=== PATIENT | male | born 1980 ===

== ENCOUNTER 2016-09-14 10:16 | Inpatient (IN) | payer MEDICARE ==
[2016-09-14 10:16] VITALS: BMI 31.4
[2016-09-14] MEDS ORDERED: Sodium Chloride 0.9% 1,000 ML IV STA (11:42)
--- NOTE | 2016-09-14 12:18 | ED PDOC ---
HPI: General Adult Time Seen by Provider: 09/14/16 10:32 Chief Complaint (Nursing): Headache History Per: Patient Additional Complaint(s): Pt. states on Sunday as he was getting into bed he struck the top of his onto a wooden headboard and he immediately felt pain and dizziness. Reports symptoms have been constant since. Pt. describes dizziness as the room spinning. Denies neck pain, LOC, N/V, hearing changes, previous TBI, hx of seizures, anticoagulant use. NIHSS Stroke Scale - Date/Time Evaluation Performed Date Performed: 09/14/16 Time Performed: 14:07 When Was NIHSS Performed: 24 hours post onset S/S - How Severe is the Stroke Level of Consciousness: 0=Alert LOC to Questions: 0=Both comments correct LOC to commands: 0=Obeys both correctly Best Gaze: 0=Normal Visual: 0=No visual loss Facial: 0=Normal Motor Arm - Left: 0=No drift Motor Arm - Right: 0=No drift Motor Leg - Left: 4=No movement (paraplegic) Motor Leg - Right: 4=No movement (paraplegic) Limb Ataxia: 1=Present Upper or Lower Sensory: 0=Normal Best Language: 0=No aphasia Dysarthia: 0=Normal articulation Extinction & Inattention (Neglect): 0=Normal, no object Score: 9 rTPA Inclusion/Exclusion - Refusal of Treatment Patient Refused Treatment: No - Inclusion Criteria for Altepase Patient is 18 years or Older: Yes The Clinical Diagnosis of Ischemic Stroke That is Causing a Potentially Disabling Neurological Deficit: No Time of Onset is Well Established to be Less Than 270 Minute Before Treatment Would Begin: No Risk/Benefit Discussed With Patient/Family Member Present: Yes - Exclusion Criteria for Altepase Uncontrolled Hypertension at Time of Treatment (Systolic BP above 185 or Diastolic BP above 110 mmHg): No Active Internal Bleeding: Yes Known Bleeding Diathesis Including but Not Limited to: Platelets Below 100,000/ mm,PTT Above 40 sec After Heparin Use, Current Use of Oral Anitcoagulant With INR Greater Than 1.7 or PT Greater Than 15 secs: No Evidence of an Intracranial Hemorrhage: No Evidence of Major Acute Infarct With Signs Greater Than 1/3 MCA Territory: No Suspicion of Subarachnoid Hemorrhage on Pretreatment Evaluation Even if CT Head Negative For Hemorrhage: No - Warning to TPA With Conditions Following Conditions Weighed Against Anticipated Benefit: No Past Medical History Reviewed: Historical Data, Nursing Documentation, Vital Signs Vital Signs: Last Vital Signs Temp 98.1 F 09/14/16 18:00 Pulse 68 09/14/16 18:52 Resp 18 09/14/16 18:52 BP 140/80 09/14/16 18:52 Pulse Ox 99 09/14/16 20:04 - Medical History PMH: Denies: Hypercholesterolemia (denies), Hyperlipidemia (denies), Osteoporosis (denies) Other PMH: pt. is paralyzed from "hip down" - Family History Family History: States: No Known Family Hx - Home Medications Home Medications: Ambulatory Orders Medication Instructions Recorded Alendronate [Fosamax] 70 mg PO QWK 09/14/16 Cyanocobalamin [Vitamin B12 1000 1,000 mcg PO DAILY 09/14/16 mcg Tab] Ergocalciferol (Vitamin D2) 50,000 unit PO QWK 09/14/16 [Vitamin D2] - Allergies Allergies/Adverse Reactions: Allergies Allergy/AdvReac Type Severity Reaction Status Date / Time No Known Allergies Allergy Verified 03/19/16 11:20 Review of Systems ROS Statement: Except As Marked, All Systems Reviewed And Found Negative Neurological: Positive for: Headache, Dizziness Physical Exam - Reviewed Nursing Documentation Reviewed: Yes Vital Signs Reviewed: Yes - Physical Exam Appears: Positive for: Well, Non-toxic, No Acute Distress Head Exam: Positive for: ATRAUMATIC, NORMAL INSPECTION, NORMOCEPHALIC Skin: Positive for: Normal Color, Warm. Negative for: Rash Eye Exam: Positive for: EOMI, Normal appearance, PERRL ENT: Positive for: Normal ENT Inspection Neck: Positive for: Normal, Painless ROM Cardiovascular/Chest: Positive for: Regular Rate, Rhythm Respiratory: Positive for: CNT, Normal Breath Sounds Gastrointestinal/Abdominal: Positive for: Normal Exam, Bowel Sounds, Soft. Negative for: Tenderness Back: Positive for: Normal Inspection Extremity: Positive for: Normal ROM (upper extremities only) Neurologic/Psych: Positive for: Alert, Oriented - Laboratory Results Result Diagrams: 09/14/16 12:00 09/14/16 13:25 - ECG ECG: Positive for: Interpreted By Me ECG Rhythm: Positive for: Sinus Rhythm. Negative for: ST/T Changes O2 Sat by Pulse Oximetry: 99 - Progress ED Course And Treament: Labs ordered. CT head w/o contrast ordered. EKG ordered. CT head w/o contrast: Acute intraparenchymal hemorrhage at the left basal ganglia extending to the left lateral ventricle measures 3.6 centimeter in the largest diameter. Small amount of acute blood also seen in the 3rd and 4th ventricles. Mass effect and [id number]-ro-[id number] midline shift measures 5.2 millimeter. Mild effacement of the left brain sulci and left basilar cistern also noted. Close follow-up reassessment is recommended. Case d/w Dr. Goodman. Case d/w Dr. Brown and requests CT head w/o contrast to be done tomorrow AM. No further action necessary. Case d/w Dr. Lewis who requests CTA of head and neck to be done. No further action necessary. Case d/w Dr. Lazaro and arrangements made for admission. Case d/w Dr. Bermeo, ICU attending. Disposition - Clinical Impression Clinical Impression: Intraparenchymal hemorrhage of brain - Patient ED Disposition Is Patient to be Admitted: Yes - Disposition Disposition Time: 14:06 Condition: FAIR
[2016-09-14 12:47] LABS: BASO % 0.2 % (0.0-2.0); EOS % 0.2 % (0.0-4.0); HEMATOCRIT 41.4 % (35.0-51.0); LYMPH # 1.6 K/uL (1.0-4.3); LYMPH % 10.9 % (20.0-40.0); MEAN CELL VOLUME 84.3 fl (80.0-94.0); MEAN CORPUSCULAR HGB CONC 33.2 g/dL (33.0-37.0); MEAN PLATELET VOLUME 9.3 fl (7.2-11.7); MONO # 1.6 K/uL (0.0-0.8); MONO % 11.2 % (0.0-10.0); NEUT # 11.2 K/uL (1.8-7.0); NEUT % 77.5 % (50.0-75.0); RED CELL DISTRIBUTION WIDTH 17.2 % (11.5-14.5); WHITE BLOOD COUNT 14.5 K/uL (4.8-10.8)
[2016-09-14 13:08] LABS: PARTIAL THROMBOPLASTIN TIME 26.8 SECONDS (23.3-32.5)
--- NOTE | 2016-09-14 13:14 | CT ---
PROCEDURE: CT HEAD WITHOUT CONTRAST. HISTORY: trauma, dizziness COMPARISON: None available. TECHNIQUE: Axial computed tomography images were obtained through the head/brain without intravenous contrast. Radiation dose: Total exam DLP = mGy-cm. This CT exam was performed using one or more of the following dose reduction techniques: Automated exposure control, adjustment of the mA and/or kV according to patient size, and/or use of iterative reconstruction technique. FINDINGS: HEMORRHAGE: There is acute intraparenchymal hemorrhage at the left basal ganglia mainly in the caudate head and ligament extending to the left lateral ventricle. Findings could be due to rupture aneurysm or due to hypertension. BRAIN: There is mass effect on the lateral ventricles and lzso-fp-[id number] midline shift approximately 5.2 millimeter. There is mild effacement of the left brain sulci suggestive of mild increased intracranial pressure. There is also mild effacement of the left basilar cistern. VENTRICLES: Intraventricular hemorrhage seen at the left lateral ventricle and in the 3rd and 4th ventricles. CALVARIUM: Unremarkable. PARANASAL SINUSES: Unremarkable as visualized. No significant inflammatory changes. MASTOID AIR CELLS: Unremarkable as visualized. No inflammatory changes. OTHER FINDINGS: None. IMPRESSION: Acute intraparenchymal hemorrhage at the left basal ganglia extending to the left lateral ventricle measures 3.6 centimeter in the largest diameter. Small amount of acute blood also seen in the 3rd and 4th ventricles. Mass effect and dcqo-ab-jbuqo midline shift measures 5.2 millimeter. Mild effacement of the left brain sulci and left basilar cistern also noted. Close follow-up reassessment is recommended. If clinically warranted further assessment by CTA or MRA of the brain may be obtained to evaluate for possible aneurysm. These findings were reported to and discussed with the ER physician Dr. Moreira at 1:01 p.m on 09/14/2016.
[2016-09-14 13:59] LABS: BLOOD UREA NITROGEN 9 mg/dl (9-20); CALCIUM 9.1 mg/dL (8.4-10.2); CARBON DIOXIDE 24 mmol/L (22-30); CHLORIDE 100 mmol/L (98-107); GFR AFRICAN-AMERICAN > 60; GLUCOSE,RANDOM 107 mg/dL (75-110); POTASSIUM 3.9 MMOL/L (3.6-5.0); SODIUM 135 mmol/l (132-148); TOTAL PROTEIN 7.7 G/DL (6.3-8.2)
[2016-09-14 14:00] LABS: ALB/GLOB RATIO 1.2 (1.0-2.1); ALKALINE PHOSPHATASE 100 U/L (38-126); ALT/SGPT 60 U/L (21-72); AST/SGOT 34 U/L (17-59); BILIRUBIN,TOTAL 0.8 mg/dl (0.2-1.3)
--- NOTE | 2016-09-14 14:14 | CON ---
DATE: 09/14/2016 This is a 36-year-old paraplegic gentleman apparently with no true medical history who states that, a pproximately 3 days ago, getting into bed, he hit head on the occipital area on the headboard. Since then, he was suffering with severe headaches. He delayed presenting to the [facility] ER unti l 3 days later. He was found to be neurologically intact, but a CT of the brain does show an intracr anial hemorrhage. Reviewing the CT today, this is a very typical hypertensive basal ganglia hemorrhage with rupture int o the ventricular system, primarily the left frontal horn. There is minimal mass effect and there is no hydrocephalus. The patient presented with a normal blood pressure in the 120/80 area. He has no history of hyperten jessie. He is not taking any anticoagulation. This is a very odd scenario. This is most certainly no t in any case a typical traumatic hemorrhage. There is certainly nothing to do at this point from a surgical perspective. I would certainly advoca te checking the patient's platelets, PT, PTT. I would have a neurology consultation. I would sugges t repeating the CT tomorrow morning just to ensure there is no change and ultimately, I think the pat ient should probably have an MRI in 6-8 weeks when the blood resolves just to ensure there is no unde rlying lesion in this area. Rasheed Brown MD cc: 131 TT: 09/14/2016 14:14:23 Confirmation # [id number] Dictation # [id number] tn
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
[2016-09-14] MEDS ORDERED: Sodium Chloride 0.9% 50 ML IV ONE (15:30)
[2016-09-14] MEDS ORDERED: Iodixanol 320 MG/ML 100 ML BOTTLE IV ONE (15:30)
--- NOTE | 2016-09-14 16:21 | PCM.RRTMUL ---
MEDICAL OFFICE SPECIALIST Nurse Assessment - Vital Signs Blood Pressure:: 140/80 Pulse Rate:: 68 Respiratory Rate:: 18 Summary - Summary of Event Summary of Event: MEDICAL OFFICE SPECIALIST Time: 15:43 MEDICAL OFFICE SPECIALIST Arrival: 15:44 MEDICAL OFFICE SPECIALIST Reason: Chest pain MEDICAL OFFICE SPECIALIST Location: CT Scan S: MEDICAL OFFICE SPECIALIST called by process design chemical engineer because pt. complaining of chest pain just prior to having CT angio for evaluation Intraparenchymal bleed and its etiology. Pt. reports feeling chest pain as soon as the head of the stretcher was made supine and getting ready for transfer to the CT scan table. Pt. reports pain is substernal, sharp, not radiating, and rated 9/10. O: General: Pt. appears in acute distress Respiratory: CTAB Cardiac: S1, S2 Abdomen: Soft, Non-tender MEDICAL OFFICE SPECIALIST Intervention A/P 36 y.o. male with Intracerebral hemorrhage with acute onset chest pain 1- Stat EKG 2- Stat Troponin 3- ASA contraindicated due to intra-cerebral haemorrhage MEDICAL OFFICE SPECIALIST Outcome 1- Chest pain resolved spontaneously by the time EKG completed 2- EKG- NSR and no acute changes noted 3- CT angio completed without any subsequent sequelae 4- Pt. transferred to to ICU 5- Troponin Negative, will follow serial Troponins MEDICAL OFFICE SPECIALIST leader: Dr. Lacey MEDICAL OFFICE SPECIALIST Residnts: Jesika Atkins PGY-3, Rosa Chandler PGY-3, Donal Peterson PGY-2
--- NOTE | 2016-09-14 16:40 | CT ---
PROCEDURE: CTA of the neck and head HISTORY: trauma COMPARISON: Comparison is made to the previous CT of the head done on the same day. TECHNIQUE: Axial and reformatted coronal and sagittal CTA images of the neck and head were obtained after IV contrast administration. FINDINGS: There is no evidence of focal stenosis or occlusion in the visualized carotid arteries at the neck. No evidence of stenosis or occlusion in the intracranial arteries around the [place]. No definite CTA evidence of intracranial aneurysm. Left middle and anterior cerebral arteries are normal in caliber and shape. Again seen intraparenchymal hemorrhage at the left basal ganglia extending to left lateral ventricle. IMPRESSION: No evidence of intracranial aneurysm. No evidence of stenosis or occlusion in the carotid arteries at the neck or in the intracranial arteries. If clinically warranted follow-up MRA or CTA study after 2 weeks is suggested.
--- NOTE | 2016-09-14 16:57 | CT ---
PROCEDURE: CT Cervical Spine without contrast HISTORY: Trauma COMPARISON: None available. TECHNIQUE: Axial computed tomography images were obtained of the cervical spine without the use of intravenous contrast. Coronal and sagittal reformatted images were created and reviewed. Radiation dose: Total exam DLP = 603 mGy-cm. This CT exam was performed using one or more of the following dose reduction techniques: Automated exposure control, adjustment of the mA and/or kV according to patient size, and/or use of iterative reconstruction technique. FINDINGS: VERTEBRAE: No fracture. Normal alignment. No destructive bony lesion. DISCS/SPINAL CANAL/NEURAL FORAMINA: No significant central canal or neural foraminal stenosis. There has been fusion of the C5-6 and C6-7 disc spaces. There is an anterior plate and screws. There are no complicating factors. PARASPINAL SOFT TISSUES: Unremarkable. OTHER FINDINGS: None. IMPRESSION: No acute findings
[2016-09-14] MEDS ORDERED: Magnesium Sulfate 2 gm/50 ml 2 GM/50 ML BAG IVPB ONE (17:27)
[2016-09-14] MEDS ORDERED: Valproate 500 MG in Sodium Chloride 0.9% 100 ML IVPB ONE (17:28)
[2016-09-14] MEDS ORDERED: Multivitamin (MVI) 10 ML, Thiamine 100 MG, Folic Acid 1 MG in Sodium Chloride 0.9% 1,00... IV ONE (17:58)
[2016-09-14] MEDS ORDERED: Pneumococcal 23-Valent Vaccine IM ONE (18:03)
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
[2016-09-14 19:18] LABS: RBC URINE 3 /hpf (0-3); URINE BACTERIA FEW (<OCC); URINE BILIRUBIN NEGATIVE (NEGATIVE); URINE BLOOD MODERATE (NEGATIVE); URINE COLOR YELLOW (YELLOW); URINE GLUCOSE (UA) NEG (Normal); URINE KETONE NEGATIVE (NEGATIVE); URINE LEUKOCYTE ESTERASE SMALL Leu/uL (Negative); URINE PROTEIN NEGATIVE (NEGATIVE); WBC URINE 5 /hpf (0-5)
[2016-09-15 05:27] LABS: HEMATOCRIT 40.1 % (35.0-51.0); MEAN CELL VOLUME 83.9 fl (80.0-94.0); MEAN CORPUSCULAR HEMOGLOBIN 27.5 pg (27.0-31.0); MEAN CORPUSCULAR HGB CONC 32.8 g/dL (33.0-37.0); RED CELL DISTRIBUTION WIDTH 17.2 % (11.5-14.5); WHITE BLOOD COUNT 11.4 K/uL (4.8-10.8)
[2016-09-15 05:47] LABS: BLOOD UREA NITROGEN 7 mg/dl (9-20); CALCIUM 8.5 mg/dL (8.4-10.2); CARBON DIOXIDE 23 mmol/L (22-30); CHLORIDE 102 mmol/L (98-107); GFR AFRICAN-AMERICAN > 60; GLUCOSE,RANDOM 104 mg/dL (75-110); POTASSIUM 3.5 MMOL/L (3.6-5.0); SODIUM 135 mmol/l (132-148)
--- NOTE | 2016-09-15 08:32 | CARD ---
APPROVED REPORT EKG Measurement Heart [id number] [place] [id number] <Conclusion> Normal sinus rhythm Possible Left atrial enlargement Borderline ECG
--- NOTE | 2016-09-15 08:36 | CARD ---
APPROVED REPORT EKG Measurement Heart [id number] MD [id number] <Conclusion> Normal sinus rhythm Normal ECG
[2016-09-15] MEDS ORDERED: levoFLOXacin 750 mg in D5W 150 ML BAG IVPB SCH (09:00)
--- NOTE | 2016-09-15 10:15 | CARD ---
APPROVED REPORT EXAM: Two-dimensional and M-mode echocardiogram with Doppler and color Doppler. Other Information Quality : AverageRhythm : NSR INDICATION ICD: Intercranial Bleed 2D DIMENSIONS IVSd1.17 (0.7-1.1cm)LVDd4.89 (3.9-5.9cm) LVOT Diameter2.21 (1.8-2.4cm)PWd1.06 (0.7-1.1cm) IVSs1.44 (0.8-1.2cm)LVDs2.82 (2.5-4.0cm) FS (%) 42.4 %PWs1.47 (0.8-1.2cm) M-Mode DIMENSIONS Left Atrium (MM)2.97 (2.5-4.0cm)IVSd1.09 (0.7-1.1cm) Aortic Root3.21 (2.2-3.7cm)LVDd5.76 (4.0-5.6cm) Aortic Cusp Exc.2.24 (1.5-2.0cm)PWd0.97 (0.7-1.1cm) IVSs1.47 cmFS (%) 35 % LVDs3.74 (2.0-3.8cm)PWs1.53 cm Mitral Valve E/A ratio0.0 TDI E/Lateral E'0.0E/Medial E'0.0 LEFT VENTRICLE The left ventricle is normal size. There is normal left ventricular wall thickness. Left ventricle systolic function is normal. The Ejection Fraction is 55-60%. There is normal LV segmental wall motion. The left ventricular diastolic function is normal. RIGHT VENTRICLE The right ventricle is normal size. There is normal right ventricular wall thickness. The right ventricular systolic function is normal. ATRIA The left atrium size is normal. The right atrium size is normal. AORTIC VALVE The aortic valve is normal in structure and function. No aortic regurgitation is present. There is no aortic valvular stenosis. MITRAL VALVE The mitral valve is normal in structure and function. There is no evidence of mitral valve prolapse. There is no mitral valve stenosis. There is no mitral valve regurgitation noted. TRICUSPID VALVE The tricuspid valve is normal in structure and function. There is no tricuspid valve regurgitation noted. PULMONIC VALVE The pulmonary valve is normal in structure and function. There is no pulmonic valvular regurgitation. GREAT VESSELS The aortic root is normal in size. Due to poor image quality, the IVC could not be assessed. PERICARDIAL EFFUSION The pericardium appears normal. <Conclusion> The left ventricle is normal size. There is normal left ventricular wall thickness. There is normal LV segmental wall motion. Left ventricle systolic function is normal. The Ejection Fraction is 55-60%. The left ventricular diastolic function is normal.
--- NOTE | 2016-09-15 10:31 | CP.CCUPN ---
Addendum entered and electronically signed by Donal Peterson DO 09/15/16 14:14 : Sacral Ulcers x 2 with Leucocytosis-Improving 11.4 today Secondary to pressure due to immobilization 1-Turn patient q2hrs 2-Wound care consult 3-Pending Wound culture 4-I.V. antibiotics Rocephin 1gram q24 Original Note: CCU Subjective - Physician Review Subjective (Free Text): 09/14/16 15:04 Pt. examined at bedside this morning with Dr. Bermeo during morning rounds. Pt. today with chief complaint of headache. Headache has not resolved, rated 8/10, localized to back of head, onset since admission. Pt. unable to characterize the headache but when prompted reports it as being dull. On ROS, Pt. denies any nausea, vomiting, shortness of breath, chest pain, fever, chils, dysuria, flank pain, or limb pain. CCU Objective - Vital Signs / Intake & Output Intake and Output (Last 8hrs): Intake & Output 09/14/16 09/15/16 09/15/16 22:59 06:59 14:59 Intake Total 650 900 Output Total 1100 Balance 650 -200 Intake: IV 400 900 Intake, Piggyback 250 Output: Urine 1100 Urethral (De La Torre) 1100 - Physical Exam Extroacular Muscles: Positive for: EOMI Neck: Positive for: Normal Range of Motion, Other (Supple) Respiratory/Chest: Positive for: Clear to Auscultation. Negative for: Respiratory Distress Cardiovascular: Positive for: Regular Rate and Rhythm. Negative for: Murmurs Abdomen: Negative for: Tenderness, Distention, Peritoneal Signs Genitourinary Male: Positive for: Other Upper Extremity: Positive for: Normal Inspection, NORMAL PULSES. Negative for: Edema Lower Extremity: Positive for: Normal Inspection. Negative for: Edema, Neurovascularly Intact (bilateral strength 0/5) Neurological: Positive for: CN II-XII Intact, Speech Normal, Gait Normal ( Paraplegic from waist down) Skin: Positive for: Other (Sacral Ulcer x 2 localized to RT. lateral uppr thigh and sacral area) Psychiatric: Positive for: Alert, Oriented x 3 - Medications Active Medications: Active Medications Generic Name Dose Route Start Last Admin Trade Name Freq PRN Reason Stop Dose Admin Acetaminophen 650 mg 09/15/16 10:14 Tylenol 325mg Tab PO Q6 PRN Headache Dextrose/Sodium Chloride 1,000 mls @ 75 mls/hr 09/14/16 16:45 09/14/16 17:26 Dextrose 5%-0.45% Ns 500 Ml IV 09/15/16 16:39 75 mls/hr .[id number] YESSI Administration Ceftriaxone Sodium 1 gm/ 100 mls @ 100 mls/hr 09/14/16 17:45 09/15/16 08:47 Sodium Chloride IVPB 100 mls/hr DAILY YESSI Administration Levofloxacin/Dextrose 750 mg in 150 mls @ 150 mls/hr 09/15/16 09:00 Levaquin 750mg IVPB DAILY YESSI - Patient Studies Lab Studies: Lab Studies 09/15/16 09/15/16 09/15/16 Range/Units 04:25 04:25 04:25 WBC 11.4 H (4.8-10.8) K/uL RBC 4.77 (4.40-5.90) Mil/uL Hgb 13.1 (12.0-18.0) g/dL Hct 40.1 (35.0-51.0) % MCV 83.9 (80.0-94.0) fl MCH 27.5 (27.0-31.0) pg MCHC 32.8 L (33.0-37.0) g/dL RDW 17.2 H (11.5-14.5) % Plt Count 199 (130-400) K/uL Sodium 135 (132-148) mmol/l Potassium 3.5 L (3.6-5.0) MMOL/L Chloride 102 (98-107) mmol/L Carbon Dioxide 23 (22-30) mmol/L Anion Gap 14 (10-20) BUN 7 L (9-20) mg/dl Creatinine 0.5 L (0.8-1.5) mg/dL Est GFR ( Amer) > 60 Est GFR (Non-Af Amer) > 60 POC Glucose (mg/dL) (65-110) mg/dL Random Glucose 104 (75-110) mg/dL Calcium 8.5 (8.4-10.2) mg/dL Troponin I (0.00-0.120) ng/mL Vitamin B12 295 (239-931) pg/mL Urine Color (YELLOW) Urine Clarity (Clear) Urine pH (5.0-8.0) Ur Specific Bison (1.003-1.030) Urine Protein (NEGATIVE) mg/dL Urine Glucose (UA) (Normal) mg/dL Urine Ketones (NEGATIVE) mg/dL Urine Blood (NEGATIVE) Urine Nitrate (NEGATIVE) Urine Bilirubin (NEGATIVE) Urine Urobilinogen (0.2-1.0) mg/dL Ur Leukocyte Esterase (Negative) Cheryl/uL Urine RBC (Auto) (0-3) /hpf Urine Microscopic WBC (0-5) /hpf Ur Squamous Epith Cells (0-5) /hpf Urine Bacteria (<OCC) Urine Opiates Screen (NEGATIVE) Urine Methadone Screen (NEGATIVE) Ur Barbiturates Screen (NEGATIVE) Ur Phencyclidine Scrn (NEGATIVE) Ur Amphetamines Screen (NEGATIVE) U Benzodiazepines Scrn (NEGATIVE) U Oth Cocaine Metabols (NEGATIVE) U Cannabinoids Screen (NEGATIVE) HIV-1 Ab Rapid Screen Non reactive (NON REAC) 09/14/16 09/14/16 09/14/16 Range/Units 18:30 18:15 15:55 WBC (4.8-10.8) K/uL RBC (4.40-5.90) Mil/uL Hgb (12.0-18.0) g/dL Hct (35.0-51.0) % MCV (80.0-94.0) fl MCH (27.0-31.0) pg MCHC (33.0-37.0) g/dL RDW (11.5-14.5) % Plt Count (130-400) K/uL Sodium (132-148) mmol/l Potassium (3.6-5.0) MMOL/L Chloride (98-107) mmol/L Carbon Dioxide (22-30) mmol/L Anion Gap (10-20) BUN (9-20) mg/dl Creatinine (0.8-1.5) mg/dL Est GFR ( Amer) Est GFR (Non-Af Amer) POC Glucose (mg/dL) (65-110) mg/dL Random Glucose (75-110) mg/dL Calcium (8.4-10.2) mg/dL Troponin I < 0.0120 (0.00-0.120) ng/mL Vitamin B12 263 (239-931) pg/mL Urine Color Yellow (YELLOW) Urine Clarity Cloudy (Clear) Urine pH 7.0 (5.0-8.0) Ur Specific Bison 1.028 (1.003-1.030) Urine Protein Negative (NEGATIVE) mg/dL Urine Glucose (UA) Neg (Normal) mg/dL Urine Ketones Negative (NEGATIVE) mg/dL Urine Blood Moderate (NEGATIVE) Urine Nitrate Negative (NEGATIVE) Urine Bilirubin Negative (NEGATIVE) Urine Urobilinogen 4.0 (0.2-1.0) mg/dL Ur Leukocyte Esterase Small (Negative) Cheryl/uL Urine RBC (Auto) 3 (0-3) /hpf Urine Microscopic WBC 5 (0-5) /hpf Ur Squamous Epith Cells 1 (0-5) /hpf Urine Bacteria Few H (<OCC) Urine Opiates Screen (NEGATIVE) Urine Methadone Screen (NEGATIVE) Ur Barbiturates Screen (NEGATIVE) Ur Phencyclidine Scrn (NEGATIVE) Ur Amphetamines Screen (NEGATIVE) U Benzodiazepines Scrn (NEGATIVE) U Oth Cocaine Metabols (NEGATIVE) U Cannabinoids Screen (NEGATIVE) HIV-1 Ab Rapid Screen (NON REAC) 09/14/16 09/14/16 Range/Units 15:52 15:27 WBC (4.8-10.8) K/uL RBC (4.40-5.90) Mil/uL Hgb (12.0-18.0) g/dL Hct (35.0-51.0) % MCV (80.0-94.0) fl MCH (27.0-31.0) pg MCHC (33.0-37.0) g/dL RDW (11.5-14.5) % Plt Count (130-400) K/uL Sodium (132-148) mmol/l Potassium (3.6-5.0) MMOL/L Chloride (98-107) mmol/L Carbon Dioxide (22-30) mmol/L Anion Gap (10-20) BUN (9-20) mg/dl Creatinine (0.8-1.5) mg/dL Est GFR ( Amer) Est GFR (Non-Af Amer) POC Glucose (mg/dL) 111 H (65-110) mg/dL Random Glucose (75-110) mg/dL Calcium (8.4-10.2) mg/dL Troponin I (0.00-0.120) ng/mL Vitamin B12 (239-931) pg/mL Urine Color (YELLOW) Urine Clarity (Clear) Urine pH (5.0-8.0) Ur Specific Bison (1.003-1.030) Urine Protein (NEGATIVE) mg/dL Urine Glucose (UA) (Normal) mg/dL Urine Ketones (NEGATIVE) mg/dL Urine Blood (NEGATIVE) Urine Nitrate (NEGATIVE) Urine Bilirubin (NEGATIVE) Urine Urobilinogen (0.2-1.0) mg/dL Ur Leukocyte Esterase (Negative) Cheryl/uL Urine RBC (Auto) (0-3) /hpf Urine Microscopic WBC (0-5) /hpf Ur Squamous Epith Cells (0-5) /hpf Urine Bacteria (<OCC) Urine Opiates Screen Negative (NEGATIVE) Urine Methadone Screen Negative (NEGATIVE) Ur Barbiturates Screen Negative (NEGATIVE) Ur Phencyclidine Scrn Negative (NEGATIVE) Ur Amphetamines Screen Negative (NEGATIVE) U Benzodiazepines Scrn Negative (NEGATIVE) U Oth Cocaine Metabols Negative (NEGATIVE) U Cannabinoids Screen Negative (NEGATIVE) HIV-1 Ab Rapid Screen (NON REAC) Laboratory Results - last 24 hr 09/14/16 09/14/16 09/14/16 15:27 15:52 15:55 WBC RBC Hgb Hct MCV MCH MCHC RDW Plt Count Sodium Potassium Chloride Carbon Dioxide Anion Gap BUN Creatinine Est GFR ( Amer) Est GFR (Non-Af Amer) POC Glucose (mg/dL) 111 H Random Glucose Calcium Troponin I < 0.0120 Vitamin B12 Urine Color Urine Clarity Urine pH Ur Specific Bison Urine Protein Urine Glucose (UA) Urine Ketones Urine Blood Urine Nitrate Urine Bilirubin Urine Urobilinogen Ur Leukocyte Esterase Urine RBC (Auto) Urine Microscopic WBC Ur Squamous Epith Cells Urine Bacteria Urine Opiates Screen Negative Urine Methadone Screen Negative Ur Barbiturates Screen Negative Ur Phencyclidine Scrn Negative Ur Amphetamines Screen Negative U Benzodiazepines Scrn Negative U Oth Cocaine Metabols Negative U Cannabinoids Screen Negative HIV-1 Ab Rapid Screen 09/14/16 09/14/16 09/15/16 18:15 18:30 04:25 WBC RBC Hgb Hct MCV MCH MCHC RDW Plt Count Sodium Potassium Chloride Carbon Dioxide Anion Gap BUN Creatinine Est GFR ( Amer) Est GFR (Non-Af Amer) POC Glucose (mg/dL) Random Glucose Calcium Troponin I Vitamin B12 263 Urine Color Yellow Urine Clarity Cloudy Urine pH 7.0 Ur Specific Bison 1.028 Urine Protein Negative Urine Glucose (UA) Neg Urine Ketones Negative Urine Blood Moderate Urine Nitrate Negative Urine Bilirubin Negative Urine Urobilinogen 4.0 Ur Leukocyte Esterase Small Urine RBC (Auto) 3 Urine Microscopic WBC 5 Ur Squamous Epith Cells 1 Urine Bacteria Few H Urine Opiates Screen Urine Methadone Screen Ur Barbiturates Screen Ur Phencyclidine Scrn Ur Amphetamines Screen U Benzodiazepines Scrn U Oth Cocaine Metabols U Cannabinoids Screen HIV-1 Ab Rapid Screen Non reactive 09/15/16 09/15/16 04:25 04:25 WBC 11.4 H RBC 4.77 Hgb 13.1 Hct 40.1 MCV 83.9 MCH 27.5 MCHC 32.8 L RDW 17.2 H Plt Count 199 Sodium 135 Potassium 3.5 L Chloride 102 Carbon Dioxide 23 Anion Gap 14 BUN 7 L Creatinine 0.5 L Est GFR ( Amer) > 60 Est GFR (Non-Af Amer) > 60 POC Glucose (mg/dL) Random Glucose 104 Calcium 8.5 Troponin I Vitamin B12 295 Urine Color Urine Clarity Urine pH Ur Specific Bison Urine Protein Urine Glucose (UA) Urine Ketones Urine Blood Urine Nitrate Urine Bilirubin Urine Urobilinogen Ur Leukocyte Esterase Urine RBC (Auto) Urine Microscopic WBC Ur Squamous Epith Cells Urine Bacteria Urine Opiates Screen Urine Methadone Screen Ur Barbiturates Screen Ur Phencyclidine Scrn Ur Amphetamines Screen U Benzodiazepines Scrn U Oth Cocaine Metabols U Cannabinoids Screen HIV-1 Ab Rapid Screen Review of Systems - Review of Systems Review of Systems: See HPI Critical Care Progress Note - Nutrition Nutrition: Nutrition Category Date Time Status Regular Diet [DIET] Diets 09/14/16 Dinner Active Assessment/Plan - Assessment and Plan (Free Text) Assessment: 36 y.o. male admitted for Intracerebral Hemorrhage which ocurred at home of unclear etiology trauma vs. AV-malformation vs. aneuyrsm Intracerebral Hemorrhage- Intraparenchymal hemorrhage at the left basal ganglia Neurosurgery Dr. Brown consulted in the ED by DONNA Lezama- Input appreciated Neurology Dr. Lewis consulted in the ED by DONNA Lezama- Input appreciated 1- Elevate head of bed at 30degrees 2- Neurochecks q2hrs 3- Pending- CT angio & CT neck w/o contrast a. No evidence of intracrania aneurysm b. no evidence of stensosi or occlusion in the carotid arteries at the neck or in the intracrania arteries c. If clinically warranted follow up MRA or CTA study after 2 weeks is suggested. 4- Pending Repeat CT head w/o contrast in the today 5- Pending Echocardiogram and Venous Doppler rule to rule out sources of thromboembolic disease Headache- No improvement 1- Secondary to Intracerebral Hemorrhage 2- Keep head of bed elevated 3- Avoid opiates, Tylenol PRN 4- Will consider I.V. steroids pending repeat CT scan looking for resolution of midline shift Hx of Chronic Alcoholism 1-Banana bag x 1 on 09/14/16 2-B-12 and Folate levels are WNL 3-Clinically monitor for signs of withdrawl Sacral Ulcers x 2 with Leucocytosis-Improving 11.4 today 1-Turn patient q2hrs 2-Wound care consult 3-Pending Wound culture 4-I.V. antibiotics Rocephin 1gram q24 Catheter associated UTI- Small bacteria, Trace leucocyte esterase Pt. De La Torre catheter present on admission from home 1- Change De La Torre 2- Start Ciprfloxacin 750mg daily 3- UCX pending Leucocytosis- 11.4 today improving Afebrile on admission blood pressure and HR WNL 1- Repeat CBC is WNL 2- Pending WCx with gram stain 3- Continue Rocephin 1gram q24 Paraplegia Chronic 1-PT/OT evaluate and treat Incontinence Chronic 1-De La Torre catheter from home changed 2-Consider changing De La Torre catheter DVT prophylaxis 1-SCD only GI prophylaxis 1-Not indicated Diet 1-Regular 2-Decreased PO intake 3-I.V. fluids D51/2 NS at 75
[2016-09-15] MEDS: levoFLOXacin 750 mg in D5W 750 MG/150 ML BAG IVPB SCH (11:59)
[2016-09-15 12:22] LABS: FOLATE 4.5 ng/mL
--- NOTE | 2016-09-15 14:04 | PQF GENQUE ---
This form is a permanent part of the medical record 09/15/16 Dr. Lazaro, Please clarify if there is an associated diagnosis to go along with the documentation by the clerical warehouse worker below. Documentation by the mechanical planner that the patient presented to the hospital with a Right Hip Stage 3 Pressure Ulcer. Recommending to start Medihoney then cover with thick foam dressing daily. Clarification of your documentation is requested to better reflect the severity of illness and intensity of treatment of your patient. PHYSICIAN'S RESPONSE Based on your medical judgment of the clinical indicators outlined above please clarify the following: [] Practitioner response [] If unable to determine, please check the box, sign and date. Present On Admission (POA) Indicator: [] Present at the time of admission [] Not present at the time of admission [] Clinically Undetermined In responding to this query, please exercise your independent professional judgment. The fact that a question is asked does not imply that any particular answer is desired or expected. Thank you for your clarification on this documentation. If you have any questions please call: [phone] * Thank you, Leidy Adams RN CDMP MTDD
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
--- NOTE | 2016-09-15 16:03 | CP.PCM.PN ---
Subjective - Date & Time of Evaluation Date of Evaluation: 09/15/16 Time of Evaluation: 16:00 - Subjective Subjective: Mr. Sousa was seen and examined today at bedside. He was found in NAD. There were no acute events overnight. Neurologically, he is unchanged. CT scan of the head was not done yet due to logistical issues. Objective - Vital Signs/Intake and Output Vital Signs (last 24 hours): Temp Pulse Resp BP Pulse Ox 99.9 F H 76 22 134/72 94 L 09/15/16 12:00 09/15/16 14:00 09/15/16 14:00 09/15/16 14:00 09/15/16 14:00 Intake and Output: 09/15/16 09/15/16 06:59 18:59 Intake Total 1550 1130 Output Total 1100 1200 Balance 450 -70 - Medications Medications: Current Medications Acetaminophen (Tylenol 325mg Tab) 650 mg PO Q6 PRN PRN Reason: Headache Last Admin: 09/15/16 12:02 Dose: 650 mg Dextrose/Sodium Chloride (Dextrose 5%-0.45% Ns 500 Ml) 1,000 mls @ 75 mls/hr IV .[id number] Stop: 09/15/16 16:39 Last Admin: 09/14/16 17:26 Dose: 75 mls/hr Ceftriaxone Sodium 1 gm/ (Sodium Chloride) 100 mls @ 100 mls/hr IVPB DAILY [facility] Last Admin: 09/15/16 08:47 Dose: 100 mls/hr Levofloxacin/Dextrose (Levaquin 750mg) 750 mg in 150 mls @ 150 mls/hr IVPB DAILY [facility] Last Admin: 09/15/16 11:59 Dose: 150 mls/hr - Labs Labs: 09/15/16 04:25 09/15/16 04:25 PT 10.2 SECONDS (9.6-11.2) 09/14/16 12:00 INR 0.98 (0.92-1.08) 09/14/16 12:00 APTT 26.8 SECONDS (23.3-32.5) 09/14/16 12:00 - Head Exam Head Exam: ATRAUMATIC, NORMAL INSPECTION, NORMOCEPHALIC - Eye Exam Eye Exam: EOMI, Normal appearance, PERRL - ENT Exam ENT Exam: Mucous Membranes Moist, Normal Exam - Neck Exam Neck Exam: Full ROM, Normal Inspection. absent: Lymphadenopathy - Respiratory Exam Respiratory Exam: Clear to Ausculation Bilateral, NORMAL BREATHING PATTERN - Cardiovascular Exam Cardiovascular Exam: REGULAR RHYTHM, +S1, +S2. absent: Murmur - GI/Abdominal Exam GI & Abdominal Exam: Soft, Normal Bowel Sounds. absent: Tenderness - Neurological Exam Neurological Exam: Alert, Awake, CN II-XII Intact, Oriented x3 Neuro motor strength exam: Left Upper Extremity: 4, Right Upper Extremity: 4, Left Lower Extremity: 2/1, Right Lower Extremity: 2/1 Additional comments: Neurologically unchanged compared with yesterday's examination. Assessment and Plan (1) Intracranial hemorrhage Assessment & Plan: Continue supportive care. CT scan of the head is pending. Clinically, the patient is stable. Neurology will continue following. May consider transferring to general medical floor tomorrow if the CT head in the AM is still unchanged. Status: Acute
--- NOTE | 2016-09-15 16:22 | US ---
PROCEDURE: Bilateral lower extremity venous duplex Doppler. HISTORY: Intracerebral hemorrhage COMPARISON: None available. TECHNIQUE: Bilateral common femoral, superficial femoral, popliteal and posterior tibial veins were evaluated. Flow was assessed with color Doppler, compressibility, assessment of phasic flow and augmentation response. FINDINGS: Limited study COMMON FEMORAL VEIN: Right CFV: Unremarkable. Left CFV: Unremarkable. SUPERFICIAL FEMORAL VEIN: Right SFV: Unremarkable. Left SFV: Unremarkable. POPLITEAL VEIN: Right Popliteal: Unremarkable. Left Popliteal: Unremarkable. POSTERIOR TIBIAL VEIN: Right PTV: Unremarkable. Left PTV: Unremarkable. OTHER FINDINGS: None. IMPRESSION: Limited study. No evidence of deep venous thrombosis.
--- NOTE | 2016-09-15 16:56 | CT ---
PROCEDURE: CT HEAD WITHOUT CONTRAST. HISTORY: intracerebral hemorrhage COMPARISON: 09/14/2016. CT head. Summary of findings on the comparison examination: Acute intraparenchymal hemorrhage left basal ganglia extending to the left lateral ventricle. TECHNIQUE: Axial computed tomography images were obtained through the head/brain without intravenous contrast. Radiation dose: Total exam DLP = mGy-cm. This CT exam was performed using one or more of the following dose reduction techniques: Automated exposure control, adjustment of the mA and/or kV according to patient size, and/or use of iterative reconstruction technique. FINDINGS: HEMORRHAGE: Stable parenchymal/left basal ganglia hemorrhage with extension into the ipsilateral lateral ventricle. New line hemorrhage in the 3rd and 4th ventricles apparent previously has resort. CALVARIUM: Unremarkable. PARANASAL SINUSES: Unremarkable as visualized. No significant inflammatory changes. MASTOID AIR CELLS: Unremarkable as visualized. No inflammatory changes. OTHER FINDINGS: None. IMPRESSION: Stable parenchymal hemorrhage. Resort peterson of blood previously identified within the 3rd and 4th ventricles.
[2016-09-15] MEDS ORDERED: Potassium CL 10mEq/100ml 100 ML IVPB SCH (18:00)
[2016-09-15] MEDS: Potassium CL 10 MEQ/50 ML 50 ML IVPB SCH ×2 (18:47→20:57)
[2016-09-16 07:05] LABS: HEMATOCRIT 43.7 % (35.0-51.0); MEAN CELL VOLUME 84.9 fl (80.0-94.0); MEAN CORPUSCULAR HEMOGLOBIN 28.7 pg (27.0-31.0); MEAN CORPUSCULAR HGB CONC 33.8 g/dL (33.0-37.0); RED CELL DISTRIBUTION WIDTH 17.5 % (11.5-14.5); WHITE BLOOD COUNT 12.6 K/uL (4.8-10.8)
[2016-09-16 07:58] LABS: BLOOD UREA NITROGEN 8 mg/dl (9-20); CALCIUM 9.2 mg/dL (8.4-10.2); CARBON DIOXIDE 22 mmol/L (22-30); CHLORIDE 103 mmol/L (98-107); GFR AFRICAN-AMERICAN > 60; GLUCOSE,RANDOM 91 mg/dL (75-110); MAGNESIUM 2.4 MG/DL (1.6-2.3); PHOSPHOROUS 3.3 mg/dl (2.5-4.5); POTASSIUM 3.7 MMOL/L (3.6-5.0); SODIUM 140 mmol/l (132-148)
[2016-09-16] MEDS: levoFLOXacin 750 mg in D5W 750 MG/150 ML BAG IVPB SCH (08:56)
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
--- NOTE | 2016-09-16 14:01 | CT ---
PROCEDURE: CT HEAD WITHOUT CONTRAST. HISTORY: ICH COMPARISON: 09/15/2016 TECHNIQUE: Axial computed tomography images were obtained through the head/brain without intravenous contrast. Radiation dose: Total exam DLP = 1440 mGy-cm. This CT exam was performed using one or more of the following dose reduction techniques: Automated exposure control, adjustment of the mA and/or kV according to patient size, and/or use of iterative reconstruction technique. FINDINGS: HEMORRHAGE: No significant change in large left basal ganglia hemorrhage with intraventricular extension into the left lateral ventricle. BRAIN: No mass effect or edema. No atrophy or chronic microvascular ischemic changes. VENTRICLES: Unremarkable. No hydrocephalus. CALVARIUM: Unremarkable. PARANASAL SINUSES: Unremarkable as visualized. No significant inflammatory changes. MASTOID AIR CELLS: Unremarkable as visualized. No inflammatory changes. OTHER FINDINGS: None. IMPRESSION: No significant change in large left basal ganglia hemorrhage with intraventricular extension into the left lateral ventricle.
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
--- NOTE | 2016-09-16 16:43 | CP.PCM.PN ---
Subjective - Date & Time of Evaluation Date of Evaluation: 09/16/16 Time of Evaluation: 16:41 - Subjective Subjective: Patient feels a lot better. Has no headache Has no fever. Objective - Vital Signs/Intake and Output Vital Signs (last 24 hours): Temp Pulse Resp BP Pulse Ox 99.3 F 83 19 137/69 93 L 09/16/16 16:00 09/16/16 16:00 09/16/16 16:00 09/16/16 16:00 09/16/16 16:00 Intake and Output: 09/16/16 09/16/16 06:59 18:59 Intake Total 328 970 Output Total 1000 Balance -672 970 - Medications Medications: Current Medications Ceftriaxone Sodium 1 gm/ (Sodium Chloride) 100 mls @ 100 mls/hr IVPB DAILY [facility] Last Admin: 09/16/16 08:56 Dose: 100 mls/hr Levofloxacin/Dextrose (Levaquin 750mg) 750 mg in 150 mls @ 150 mls/hr IVPB DAILY [facility] Last Admin: 09/16/16 08:56 Dose: 150 mls/hr Tramadol HCl (Ultram) 50 mg PO Q4 PRN PRN Reason: Headache Last Admin: 09/16/16 12:46 Dose: 50 mg - Labs Labs: 09/16/16 05:00 09/16/16 05:00 PT 10.2 SECONDS (9.6-11.2) 09/14/16 12:00 INR 0.98 (0.92-1.08) 09/14/16 12:00 APTT 26.8 SECONDS (23.3-32.5) 09/14/16 12:00 - Head Exam Head Exam: NORMAL INSPECTION - Eye Exam Eye Exam: Normal appearance - ENT Exam ENT Exam: Mucous Membranes Moist - Cardiovascular Exam Cardiovascular Exam: REGULAR RHYTHM - GI/Abdominal Exam GI & Abdominal Exam: Normal Bowel Sounds - Neurological Exam Neurological Exam: CN II-XII Intact, Oriented x3 - Psychiatric Exam Psychiatric exam: Normal Mood Assessment and Plan (1) Paraplegia following spinal cord injury Status: Acute (2) Intraparenchymal hemorrhage of brain Status: Acute (3) Abdominal pain Status: Acute (4) Decubitus ulcer of sacral region, stage 3 Status: Acute - Assessment and Plan (Free Text) Plan: cont meds Phys therapy transfer to telemetry. subacute rehab eval/ TCU
[2016-09-17] MEDS: levoFLOXacin 750 mg in D5W 750 MG/150 ML BAG IVPB SCH (09:19)
[2016-09-17] MEDS: Acetaminophen-Codeine 300/30 mg Tab PO PRN (12:14)
--- NOTE | 2016-09-17 20:56 | CP.PCM.PN ---
Subjective - Date & Time of Evaluation Date of Evaluation: 09/17/16 Time of Evaluation: 20:00 - Subjective Subjective: Mr. Sousa was seen and examined today at bedside. He had no complaints. There were no acute events overnight. He has been stable since being transferred out of the ICU. Objective - Vital Signs/Intake and Output Vital Signs (last 24 hours): Temp Pulse Resp BP Pulse Ox 99.7 F H 103 H 20 111/71 97 09/17/16 20:16 09/17/16 20:16 09/17/16 20:16 09/17/16 20:16 09/17/16 20:16 Intake and Output: 09/17/16 09/18/16 18:59 06:59 Intake Total 920 Output Total 550 Balance 370 - Medications Medications: Current Medications Acetaminophen/Codeine Phosphate (Tylenol/Codeine 300 Mg/30 Mg) 1 tab PO Q6 PRN PRN Reason: Pain, moderate (4-7) Last Admin: 09/17/16 12:14 Dose: 1 tab Ceftriaxone Sodium 1 gm/ (Sodium Chloride) 100 mls @ 100 mls/hr IVPB DAILY [facility] Last Admin: 09/17/16 08:44 Dose: 100 mls/hr Levofloxacin/Dextrose (Levaquin 750mg) 750 mg in 150 mls @ 150 mls/hr IVPB DAILY [facility] Last Admin: 09/17/16 09:19 Dose: 150 mls/hr - Labs Labs: 09/16/16 05:00 09/16/16 05:00 PT 10.2 SECONDS (9.6-11.2) 09/14/16 12:00 INR 0.98 (0.92-1.08) 09/14/16 12:00 APTT 26.8 SECONDS (23.3-32.5) 09/14/16 12:00 - Constitutional Appears: Well - Head Exam Head Exam: ATRAUMATIC, NORMAL INSPECTION, NORMOCEPHALIC - Eye Exam Eye Exam: EOMI, Normal appearance, PERRL - Neck Exam Neck Exam: Full ROM, Normal Inspection. absent: Lymphadenopathy - Respiratory Exam Respiratory Exam: Clear to Ausculation Bilateral, NORMAL BREATHING PATTERN - Cardiovascular Exam Cardiovascular Exam: REGULAR RHYTHM, +S1, +S2. absent: Murmur - GI/Abdominal Exam GI & Abdominal Exam: Soft, Normal Bowel Sounds. absent: Tenderness - Neurological Exam Neurological Exam: CN II-XII Intact Neuro motor strength exam: Left Upper Extremity: 4, Right Upper Extremity: 4, Left Lower Extremity: 0, Right Lower Extremity: 0 Additional comments: Neurologically unchanged compared with previous examination. Assessment and Plan (1) Intracranial hemorrhage Assessment & Plan: Continue current management. May continue DVT Px with SQ heparin. PT/OT. Obtain follow up CT head in 1 week. Status: Acute
[2016-09-18] MEDS: levoFLOXacin 750 mg in D5W 750 MG/150 ML BAG IVPB SCH (08:25)
[2016-09-18] MEDS: Acetaminophen-Codeine 300/30 mg Tab PO PRN (08:30)
--- NOTE | 2016-09-18 10:14 | CP.PCM.PN ---
Subjective - Date & Time of Evaluation Date of Evaluation: 09/18/16 Time of Evaluation: 10:14 - Subjective Subjective: Patient remains stable. Objective - Vital Signs/Intake and Output Vital Signs (last 24 hours): Temp Pulse Resp BP Pulse Ox 99.6 F 86 18 126/80 97 09/18/16 07:52 09/18/16 07:52 09/18/16 07:52 09/18/16 07:52 09/18/16 07:52 Intake and Output: 09/18/16 09/18/16 06:59 18:59 Output Total 1300 Balance -1300 - Medications Medications: Current Medications Acetaminophen/Codeine Phosphate (Tylenol/Codeine 300 Mg/30 Mg) 1 tab PO Q6 PRN PRN Reason: Pain, moderate (4-7) Last Admin: 09/18/16 08:30 Dose: 1 tab Ceftriaxone Sodium 1 gm/ (Sodium Chloride) 100 mls @ 100 mls/hr IVPB DAILY [facility] Last Admin: 09/18/16 08:24 Dose: 100 mls/hr Levofloxacin/Dextrose (Levaquin 750mg) 750 mg in 150 mls @ 150 mls/hr IVPB DAILY [facility] Last Admin: 09/18/16 08:25 Dose: 150 mls/hr - Labs Labs: 09/16/16 05:00 09/16/16 05:00 PT 10.2 SECONDS (9.6-11.2) 09/14/16 12:00 INR 0.98 (0.92-1.08) 09/14/16 12:00 APTT 26.8 SECONDS (23.3-32.5) 09/14/16 12:00 Assessment and Plan (1) Intracranial hemorrhage Status: Acute (2) Paraplegia following spinal cord injury Status: Acute (3) Decubitus ulcer of sacral region, stage 3 Status: Acute
--- NOTE | 2016-09-18 10:14 | CP.PCM.PN ---
Subjective - Date & Time of Evaluation Date of Evaluation: 09/17/16 Time of Evaluation: 10:00 - Subjective Subjective: Patient has been stable Has no chest pain or SOB Afberile, Objective - Vital Signs/Intake and Output Vital Signs (last 24 hours): Temp Pulse Resp BP Pulse Ox 99.6 F 86 18 126/80 97 09/18/16 07:52 09/18/16 07:52 09/18/16 07:52 09/18/16 07:52 09/18/16 07:52 Intake and Output: 09/18/16 09/18/16 06:59 18:59 Output Total 1300 Balance -1300 - Medications Medications: Current Medications Acetaminophen/Codeine Phosphate (Tylenol/Codeine 300 Mg/30 Mg) 1 tab PO Q6 PRN PRN Reason: Pain, moderate (4-7) Last Admin: 09/18/16 08:30 Dose: 1 tab Ceftriaxone Sodium 1 gm/ (Sodium Chloride) 100 mls @ 100 mls/hr IVPB DAILY [facility] Last Admin: 09/18/16 08:24 Dose: 100 mls/hr Levofloxacin/Dextrose (Levaquin 750mg) 750 mg in 150 mls @ 150 mls/hr IVPB DAILY [facility] Last Admin: 09/18/16 08:25 Dose: 150 mls/hr - Labs Labs: 09/16/16 05:00 09/16/16 05:00 PT 10.2 SECONDS (9.6-11.2) 09/14/16 12:00 INR 0.98 (0.92-1.08) 09/14/16 12:00 APTT 26.8 SECONDS (23.3-32.5) 09/14/16 12:00 - Head Exam Head Exam: NORMAL INSPECTION - Eye Exam Eye Exam: Normal appearance - ENT Exam ENT Exam: Mucous Membranes Moist - Respiratory Exam Respiratory Exam: Clear to Ausculation Bilateral - Cardiovascular Exam Cardiovascular Exam: REGULAR RHYTHM - GI/Abdominal Exam GI & Abdominal Exam: Normal Bowel Sounds - Neurological Exam Neurological Exam: Awake, Oriented x3 Assessment and Plan (1) Intracranial hemorrhage Status: Acute (2) Paraplegia following spinal cord injury Status: Acute (3) Decubitus ulcer of sacral region, stage 3 Status: Acute - Assessment and Plan (Free Text) Plan: cont meds Cont tx Cont PT start Phs therapy
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
[2016-09-18] MEDS: Mupirocin 2% Cream TOP SCH ×2 (14:45→17:30)
[2016-09-18] MEDS: Meropenem 1 GM in Sodium Chloride 0.9% 100 ML IVPB SCH (16:51)
--- NOTE | 2016-09-19 01:10 | CP.PCM.PCO ---
Assessment and Plan - Assessment and Plan (Free Text) Assessment: 36 y/o M admitted due to large left sided intracranial hemorrhage Paged by night RN at 1:00 am: patient complaining of left sided headache. Patient examined at bedside, states headache is 8/10 intensity ''worst it's been since admission'', strictly left sided, associated with some nausea x 2 hours. Currently denies confusion, facial weakness or numbness. PE Neuro: patient is a quadraplegic, PERRLA, EOMI, CN 2-12 intact+++++++ A/P Acute onset severe headache in a patient w/ known ICH CT head w/o contrast ordered in lieu of acute onset symptoms, r/o worsening of bleed, will follow results and decide further management Previous CT and neuro plan reviewed
--- NOTE | 2016-09-19 01:53 | CT ---
EXAM: CT Head Without Intravenous Contrast CLINICAL HISTORY: 36 years old, male; Pain; Headache; Additional info: Known ich, worsening acute onset headache TECHNIQUE: Axial computed tomography images of the head/brain without intravenous contrast. This CT exam was performed using one or more of the following dose reduction techniques: automated exposure control, adjustment of the mA and/or kV according to patient size, and/or use of iterative reconstruction technique. Coronal and sagittal reformatted images were created and reviewed. EXAM DATE/TIME: 09/19/2016 1:10 AM COMPARISON: CT - HEAD W/O CONTRAST 09/16/2016 12:24:26 PM FINDINGS: Brain: Ventricular size and configuration are unchanged. There continues to be partial effacement of the frontal horn of the left lateral ventricle. Third and fourth ventricles are in the midline. There is left basal ganglia hemorrhage. Hemorrhage is similar in size. Primary bleed now measures approximately 2.7 x 2 cm. There is a small amount of surrounding edema. Blood in the left lateral ventricle is unchanged. There are no new areas of hemorrhage. Roach-white differentiation is visualized. Ventricles: See above. Bones: Cranial vault is intact Soft tissues: unremarkable Sinuses: There is no acute sinusitis. Middle ears and mastoids: Middle ears and mastoids are unremarkable. Orbits: Orbital contents are unremarkable. IMPRESSION: Left basal ganglia hemorrhage not significantly changed since the prior study, intraventricular clot also unchanged; no new abnormality
[2016-09-19] MEDS: Meropenem 1 GM in Sodium Chloride 0.9% 100 ML IVPB SCH ×3 (01:58→16:51)
--- NOTE | 2016-09-19 10:00 | CP.PCM.PN ---
Subjective - Date & Time of Evaluation Date of Evaluation: 09/19/16 Time of Evaluation: 09:58 - Subjective Subjective: evaluated with attending. overnight, pt c/o H/A, no new neuro S/S. CT head was ordered and read as no interval change in ICH from prior CT head. Eating and drinking. Making urine. Denies current H/A. Denies chest pain, SOB, abd pain. Objective - Vital Signs/Intake and Output Vital Signs (last 24 hours): Temp Pulse Resp BP Pulse Ox 98.3 F 88 18 121/78 98 09/19/16 08:08 09/19/16 08:08 09/19/16 08:08 09/19/16 08:08 09/19/16 08:08 Intake and Output: 09/19/16 09/19/16 06:59 18:59 Intake Total 950 Output Total 1500 Balance -550 - Medications Medications: Current Medications Acetaminophen/Codeine Phosphate (Tylenol/Codeine 300 Mg/30 Mg) 1 tab PO Q6 PRN PRN Reason: Pain, moderate (4-7) Last Admin: 09/18/16 08:30 Dose: 1 tab Meropenem 1 gm/ Sodium (Chloride) 100 mls @ 100 mls/hr IVPB Q8 [facility] Last Admin: 09/19/16 01:58 Dose: 100 mls/hr Mupirocin (Bactroban Cream) 1 applic TOP BID [facility] Last Admin: 09/18/16 17:30 Dose: 1 applic - Labs Labs: 09/16/16 05:00 09/16/16 05:00 PT 10.2 SECONDS (9.6-11.2) 09/14/16 12:00 INR 0.98 (0.92-1.08) 09/14/16 12:00 APTT 26.8 SECONDS (23.3-32.5) 09/14/16 12:00 - Constitutional Appears: Non-toxic, No Acute Distress - Head Exam Head Exam: NORMAL INSPECTION - Eye Exam Eye Exam: Normal appearance - Neck Exam Neck Exam: Normal Inspection - Respiratory Exam Respiratory Exam: Clear to Ausculation Bilateral - Cardiovascular Exam Cardiovascular Exam: REGULAR RHYTHM - GI/Abdominal Exam GI & Abdominal Exam: Soft - Extremities Exam Extremities Exam: Normal Inspection - Neurological Exam Neurological Exam: Alert, CN II-XII Intact, Oriented x3 Additional comments: moving upper extremities - Skin Skin Exam: Dry, Warm Assessment and Plan (1) ESBL (extended spectrum beta-lactamase) producing bacteria infection Assessment & Plan: ID on board, appreciate input merropenem Status: Acute (2) Intraparenchymal hemorrhage of brain Assessment & Plan: neuro on board, appreciate input repeat CT head, no interval change Status: Acute (3) Paraplegia following spinal cord injury Assessment & Plan: PT/OT Acute rehab v TCU Status: Chronic (4) Decubitus ulcer of sacral region, stage 3 Assessment & Plan: wound care Status: Chronic (5) DVT prophylaxis Assessment & Plan: SCDs no pharmalogical agents d/t ICH Status: Acute - Assessment and Plan (Free Text) Assessment: Dispo: likely TCU, pt declining acute rehab
--- NOTE | 2016-09-19 10:07 | CP.PCM.PN ---
Subjective - Date & Time of Evaluation Date of Evaluation: 09/19/16 Time of Evaluation: 10:06 - Subjective Subjective: patient remains stab;e Has minimal headaches Objective - Vital Signs/Intake and Output Vital Signs (last 24 hours): Temp Pulse Resp BP Pulse Ox 98.3 F 88 18 121/78 98 09/19/16 08:08 09/19/16 08:08 09/19/16 08:08 09/19/16 08:08 09/19/16 08:08 Intake and Output: 09/19/16 09/19/16 06:59 18:59 Intake Total 950 Output Total 1500 Balance -550 - Medications Medications: Current Medications Acetaminophen/Codeine Phosphate (Tylenol/Codeine 300 Mg/30 Mg) 1 tab PO Q6 PRN PRN Reason: Pain, moderate (4-7) Last Admin: 09/18/16 08:30 Dose: 1 tab Meropenem 1 gm/ Sodium (Chloride) 100 mls @ 100 mls/hr IVPB Q8 [facility] Last Admin: 09/19/16 01:58 Dose: 100 mls/hr Mupirocin (Bactroban Cream) 1 applic TOP BID [facility] Last Admin: 09/18/16 17:30 Dose: 1 applic - Labs Labs: 09/16/16 05:00 09/16/16 05:00 PT 10.2 SECONDS (9.6-11.2) 09/14/16 12:00 INR 0.98 (0.92-1.08) 09/14/16 12:00 APTT 26.8 SECONDS (23.3-32.5) 09/14/16 12:00 Assessment and Plan (1) Intracranial hemorrhage Status: Acute (2) Paraplegia following spinal cord injury Status: Chronic (3) Decubitus ulcer of sacral region, stage 3 Status: Chronic
[2016-09-19] MEDS: Mupirocin 2% Cream TOP SCH (10:14)
[2016-09-19 12:22] VITALS: O2SAT 96
[2016-09-19 15:52] VITALS: BP 109/69; PULSE 85; RESP 20; TEMP 99.3
--- NOTE | 2016-09-20 11:14 | CP.PCM.DIS ---
Provider - Provider Date of Admission: 09/14/16 14:06 Attending physician: Celestino Lazaro MD Consults: 09/14/16 16:44 Wound Care [Nursing Referral for Wound Care] Routine Comment: Physician Instructions: Reason For Exam: Sacral Ulcer x 2 Time Spent in preparation of Discharge (in minutes): 30 Diagnosis - Discharge Diagnosis (1) ESBL (extended spectrum beta-lactamase) producing bacteria infection Status: Acute (2) Intraparenchymal hemorrhage of brain Status: Acute (3) Paraplegia following spinal cord injury Status: Chronic (4) Decubitus ulcer of sacral region, stage 3 Status: Chronic (5) DVT prophylaxis Status: Acute Hospital Course - Lab Results Lab Results: Micro Results 09/14/16 18:30 Hip - Right Gram Stain - Final 09/14/16 18:30 Hip - Right Wound Culture - Final Corynebacterium Species 09/16/16 07:40 Nose MRSA Culture (Admit) - Final MRSA DETECTED 09/15/16 12:00 Urine,[place] Urine Culture - Final Escherichia Coli 09/14/16 18:30 Nose MRSA Culture (Admit) - Final MRSA NOT DETECTED Most Recent Lab Values WBC 12.6 K/uL (4.8-10.8) H 09/16/16 05:00 RBC 5.15 Mil/uL (4.40-5.90) 09/16/16 05:00 Hgb 14.8 g/dL (12.0-18.0) 09/16/16 05:00 Hct 43.7 % (35.0-51.0) 09/16/16 05:00 MCV 84.9 fl (80.0-94.0) 09/16/16 05:00 MCH 28.7 pg (27.0-31.0) 09/16/16 05:00 MCHC 33.8 g/dL (33.0-37.0) 09/16/16 05:00 RDW 17.5 % (11.5-14.5) H 09/16/16 05:00 Plt Count 236 K/uL (130-400) 09/16/16 05:00 MPV 9.3 fl (7.2-11.7) 09/14/16 12:00 Neut % (Auto) 77.5 % (50.0-75.0) H 09/14/16 12:00 Lymph % (Auto) 10.9 % (20.0-40.0) L 09/14/16 12:00 [place] % (Auto) 11.2 % (0.0-10.0) H 09/14/16 12:00 Eos % (Auto) 0.2 % (0.0-4.0) 09/14/16 12:00 Baso % (Auto) 0.2 % (0.0-2.0) 09/14/16 12:00 Neut # 11.2 K/uL (1.8-7.0) H 09/14/16 12:00 Lymph # 1.6 K/uL (1.0-4.3) 09/14/16 12:00 [place] # 1.6 K/uL (0.0-0.8) H 09/14/16 12:00 Eos # 0.0 K/uL (0.0-0.7) 09/14/16 12:00 Baso # 0.0 K/uL (0.0-0.2) 09/14/16 12:00 PT 10.2 SECONDS (9.6-11.2) 09/14/16 12:00 INR 0.98 (0.92-1.08) 09/14/16 12:00 APTT 26.8 SECONDS (23.3-32.5) 09/14/16 12:00 Sodium 140 mmol/l (132-148) 09/16/16 05:00 Potassium 3.7 MMOL/L (3.6-5.0) 09/16/16 05:00 Chloride 103 mmol/L (98-107) 09/16/16 05:00 Carbon Dioxide 22 mmol/L (22-30) 09/16/16 05:00 Anion Gap 18 (10-20) 09/16/16 05:00 BUN 8 mg/dl (9-20) L 09/16/16 05:00 Creatinine 0.6 mg/dL (0.8-1.5) L 09/16/16 05:00 Est GFR ( Amer) > 60 09/16/16 05:00 Est GFR (Non-Af Amer) > 60 09/16/16 05:00 POC Glucose (mg/dL) 111 mg/dL (65-110) H 09/14/16 15:52 Random Glucose 91 mg/dL (75-110) 09/16/16 05:00 Calcium 9.2 mg/dL (8.4-10.2) 09/16/16 05:00 Phosphorus 3.3 mg/dl (2.5-4.5) 09/16/16 05:00 Magnesium 2.4 MG/DL (1.6-2.3) H 09/16/16 05:00 Total Bilirubin 0.8 mg/dl (0.2-1.3) 09/14/16 13:25 AST 34 U/L (17-59) 09/14/16 13:25 ALT 60 U/L (21-72) 09/14/16 13:25 Alkaline Phosphatase 100 U/L (38-126) 09/14/16 13:25 Troponin I < 0.0120 ng/mL (0.00-0.120) 09/14/16 15:55 Total Protein 7.7 G/DL (6.3-8.2) 09/14/16 13:25 Albumin 4.2 g/dL (3.5-5.0) 09/14/16 13:25 Globulin 3.6 gm/dL (2.2-3.9) 09/14/16 13:25 Albumin/Globulin Ratio 1.2 (1.0-2.1) 09/14/16 13:25 Vitamin B12 295 pg/mL (239-931) 09/15/16 04:25 Folate 4.5 ng/mL 09/14/16 18:15 Urine Color Yellow (YELLOW) 09/14/16 18:30 Urine Clarity Cloudy (Clear) 09/14/16 18:30 Urine pH 7.0 (5.0-8.0) 09/14/16 18:30 Ur Specific [place] 1.028 (1.003-1.030) 09/14/16 18:30 Urine Protein Negative mg/dL (NEGATIVE) 09/14/16 18:30 Urine Glucose (UA) Neg mg/dL (Normal) 09/14/16 18:30 Urine Ketones Negative mg/dL (NEGATIVE) 09/14/16 18:30 Urine Blood Moderate (NEGATIVE) 09/14/16 18:30 Urine Nitrate Negative (NEGATIVE) 09/14/16 18:30 Urine Bilirubin Negative (NEGATIVE) 09/14/16 18:30 Urine Urobilinogen 4.0 mg/dL (0.2-1.0) 09/14/16 18:30 Ur Leukocyte Esterase Small Cheryl/uL (Negative) 09/14/16 18:30 Urine RBC (Auto) 3 /hpf (0-3) 09/14/16 18:30 Urine Microscopic WBC 5 /hpf (0-5) 09/14/16 18:30 Ur Squamous Epith Cells 1 /hpf (0-5) 09/14/16 18:30 Urine Bacteria Few (<OCC) H 09/14/16 18:30 Urine Opiates Screen Negative (NEGATIVE) 09/14/16 15:27 Urine Methadone Screen Negative (NEGATIVE) 09/14/16 15:27 Ur Barbiturates Screen Negative (NEGATIVE) 09/14/16 15:27 Ur Phencyclidine Scrn Negative (NEGATIVE) 09/14/16 15:27 Ur Amphetamines Screen Negative (NEGATIVE) 09/14/16 15:27 U Benzodiazepines Scrn Negative (NEGATIVE) 09/14/16 15:27 U Oth Cocaine Metabols Negative (NEGATIVE) 09/14/16 15:27 U Cannabinoids Screen Negative (NEGATIVE) 09/14/16 15:27 HIV-1 Ab Rapid Screen Non reactive (NON REAC) 09/15/16 04:25 Blood Type O POSITIVE 09/14/16 13:25 Blood Type Confirm O POSITIVE 09/14/16 13:00 Antibody Screen Negative 09/14/16 13:25 BBK History Checked No verified bt 09/14/16 13:25 - Hospital Course Hospital Course: 36yo M with PMHx paraplegia (ambulating with wheelchair) admitted for intracranial hemmorrhage sustained after head trauma at home. CT scan of the head was done and showed a left basal ganglia, caudate and intraventricular hemorrhage. Pt was admitted to ICU for continuous monitoring. Neurology Dr. Lewis c/s and recommended repeat CT head for any significant neuro changes with MRI/MRA once stable. Pt was transfered to telemetry nursing floor once medically stable. [employer] called for H/A with no neuro changes, repeat CT head showed no acute changes from prior CT head. Urine cx found to be ESBL positive and ID Dr. Mildred villavicencio/mitch and pt placed on merropenem. PT/OT evaluated pt and recommended acute rehab. Pt amenable to TCU for continued IV abx and rehab services. Discharge Exam - Head Exam Head Exam: NORMAL INSPECTION Discharge Plan - Discharge Medications Prescriptions: Meropenem [Merrem IV] 1 gm IV Q8 #30 pds - Follow Up Plan Condition: FAIR Disposition: TRANSF TO SNF Instructions: How to Stop Smoking (GEN), Cigarette Smoking and Your Health (GEN ), How to Prevent Pressure Ulcers (DC)
== END 2016-09-19 17:31 | DRG 85 ==
LOC: H.ER 10:16 → H.ERHOLD 14:06 → H.ICU/CCU 17:16 → H.TEL 09-16 18:45
PROVIDERS: ADMIT Family Medicine; ATTEND Family Medicine
PROC: 3E0234Z Introduction of Serum, Toxoid and Vaccine into Muscle, Percutaneous Approach (ICD-10-PCS; principal; 2016-09-14)
DX: S06.300A Unspecified focal traumatic brain injury without loss of consciousness, initial encounter (principal); G82.50 Quadriplegia, unspecified; L89.153 Pressure ulcer of sacral region, stage 3; T83.518A Infection and inflammatory reaction due to other urinary catheter, initial encounter; N39.0 Urinary tract infection, site not specified; W22.03XA Walked into furniture, initial encounter; Y93.89 Activity, other specified; Y92.9 Unspecified place or not applicable; Y99.9 Unspecified external cause status; Z99.3 Dependence on wheelchair; I10 Essential (primary) hypertension; Y84.6 Urinary catheterization as the cause of abnormal reaction of the patient, or of later complication, without mention of misadventure at the time of the procedure; F17.210 Nicotine dependence, cigarettes, uncomplicated; R32 Unspecified urinary incontinence; D72.828 Other elevated white blood cell count; R07.9 Chest pain, unspecified; Z23 Encounter for immunization; Z87.828 Personal history of other (healed) physical injury and trauma

== ENCOUNTER 2016-09-19 14:12 | Inpatient (IN) | payer OTHER ==
[2016-09-19 17:40] VITALS: BMI 27.3
[2016-09-19] MEDS ORDERED: Ergocalciferol 50,000 Intl Units Cap PO SCH (18:00)
[2016-09-19] MEDS ORDERED: ALENDRONATE 70 MG TAB PO SCH (18:00)
[2016-09-19 18:39] VITALS: RESP 20
[2016-09-20] MEDS: Meropenem 1 GM in Sodium Chloride 0.9% 100 ML IVPB SCH ×3 (00:39→17:32)
[2016-09-20] MEDS ORDERED: Patient's Own Med (Meropenem [Merrem Iv] 1 GM) IV SCH (01:00)
[2016-09-20] MEDS: Mupirocin 2% Cream TOP SCH ×2 (08:46→17:32)
--- NOTE | 2016-09-20 10:56 | CP.PCM.HP ---
History of Present Illness - History of Present Illness History of Present Illness: 36yo M with PMHx paraplegia admitted for intracranial bleed initially and currently has ESBL UTI. Pt required IV abx and rehab PMHx: as above SHx: denies Allergies: NKDA Meds: reviewed from inpatient stay Present on Admission - Present on Admission Any Indicators Present on Admission: Yes Urinary Catheter: Yes Decubitus Ulcer Present: Yes Decubitus Ulcer Location: sacrum Review of Systems - Constitutional Constitutional: absent: Chills, Fever - Cardiovascular Cardiovascular: absent: Chest Pain - Respiratory Respiratory: absent: Dyspnea - Gastrointestinal Gastrointestinal: absent: Abdominal Pain, Diarrhea, Nausea, Vomiting - Genitourinary Genitourinary: absent: Dysuria, Hematuria - Musculoskeletal Musculoskeletal: absent: Back Pain - Neurological Neurological: absent: Headaches Past Patient History - Past Social History Smoking Status: Current Some Days Smoker - CARDIAC Hx Hypercholesterolemia: No (denies) - NEUROLOGICAL Hx Neurological Disorder: Yes (paraplegic) - HEMATOLOGICAL/ONCOLOGICAL Hx AIDS: No Hx Human Immunodeficiency Virus (HIV): No - MUSCULOSKELETAL/RHEUMATOLOGICAL Hx Osteoporosis: No (denies) - PSYCHIATRIC Hx Substance Use: No - SURGICAL HISTORY Hx Surgeries: Yes Hx Musculoskeletal Surgery: Yes Other/Comment: C-6 surgery - ANESTHESIA Hx Anesthesia: Yes Hx Anesthesia Reactions: No Hx Malignant Hyperthermia: No Has any member of the family had a problem w/ anesthesia?: Yes Meds Allergies/Adverse Reactions: Allergies Allergy/AdvReac Type Severity Reaction Status Date / Time No Known Allergies Allergy Verified 03/19/16 11:20 Physical Exam - Constitutional Appears: Non-toxic, No Acute Distress - Head Exam Head Exam: NORMAL INSPECTION - Eye Exam Eye Exam: EOMI, PERRL Pupil Exam: PERRL - ENT Exam ENT Exam: Mucous Membranes Moist - Neck Exam Neck exam: Positive for: Normal Inspection - Respiratory Exam Respiratory Exam: Clear to Auscultation Bilateral - Cardiovascular Exam Cardiovascular Exam: REGULAR RHYTHM - GI/Abdominal Exam GI & Abdominal Exam: Normal Bowel Sounds, Soft - Neurological Exam Neurological exam: Alert, CN II-XII Intact, Oriented x3 Additional comments: upper extremity motor/sensation grossly intact - Skin Skin Exam: Dry, Warm Results - Vital Signs Recent Vital Signs: Last Vital Signs Temp 98.1 F 09/20/16 09:00 Pulse 72 09/20/16 09:00 Resp 20 09/20/16 09:00 BP 126/80 09/20/16 09:00 Pulse Ox 100 09/20/16 09:00 Assessment & Plan (1) ESBL (extended spectrum beta-lactamase) producing bacteria infection Assessment and Plan: ID on board, appreciate input merropenem Status: Acute (2) Intracranial hemorrhage Assessment and Plan: neuro on board, appreciate input repeat CT head, no interval change Status: Acute Priority: High (3) Paraplegia following spinal cord injury Assessment and Plan: PT/OT Status: Chronic (4) Decubitus ulcer of sacral region, stage 3 Assessment and Plan: wound care Status: Chronic (5) DVT prophylaxis Assessment and Plan: SCDs no pharmalogical agents d/t ICH Status: Acute Decision To Admit - Pt Status Changed To: Hospital Disposition Of: Inpatient - Admit Certification Admit to Inpatient:: After my assessment, the patient will require hospitalization for at least two midnights. This is because of the severity of symptoms shown, intensity of services needed, and/or the medical risk in this patient being treated as an outpatient. - . Bed Request Type: Transitional Care Unit Admitting Physician: Celestino Lazaro
--- NOTE | 2016-09-20 13:11 | CP.PCM.CON ---
History of Present Illness - History of Present Illness History of Present Illness: 36yo M with PMHx paraplegia admitted for intracranial bleed initially and currently has ESBL UTI. Pt required IV abx and rehab has indwelling fry ~ eval suggested PMHx: as above SHx: denies Allergies: NKDA Meds: reviewed from inpatient stay Review of Systems - Constitutional Constitutional: absent: As Per HPI, Anorexia, Chills, Daytime Sleepiness, Excessive Sweating, Fatigue, Fever, Frequent Falls, Headache, Increased Appetite , Lethargy, Malaise, Night Sweats, Snoring, Sleep Apnea, Weight Gain, Weight Loss, Weakness, Other - EENT Eyes: absent: As Per HPI, Blind Spots, Blurred Vision, Change in Vision, Decreased Night Vision, Diplopia, Discharge, Dry Eye, Exophthalmos, Floaters, Irritation, Itchy Eyes, Loss of Peripheral Vision, Pain, Photophobia, Requires Corrective Lenses, Sees Flashes, Spots in Vision, Tunnel Vision, Other Visual Disturbances, Loss of Vision, Other Ears: absent: As Per HPI, Decreased Hearing, Ear Discharge, Ear Pain, Tinnitus, Abnormal Hearing, Disequilibrium, Dizziness, Other Nose/Mouth/Throat: absent: As Per HPI, Epistaxis, Nasal Congestion, Nasal Discharge, Nasal Obstruction, Nasal Trauma, Nose Pain, Post Nasal Drip, Sinus Pain, Sinus Pressure, Bleeding Gums, Change in Voice, Dental Pain, Dry Mouth, Dysphagia, Halitosis, Hoarsness, Lip Swelling, Mouth Lesions, Mouth Pain, Odynophagia, Sore Throat, Throat Swelling, Tongue Swelling, Facial Pain, Neck Pain, Neck Mass, Other - Cardiovascular Cardiovascular: absent: As Per HPI, Acrocyanosis, Chest Pain, Chest Pain at Rest , Chest Pain with Activity, Claudication, Diaphoresis, Dyspnea, Dyspnea on Exertion, Edema, Irregular Heart Rhythm, Pain Radiating to Arm/Neck/Jaw, Leg Edema, Leg Ulcers, Lightheadedness, Orthopnea, Palpitations, Paroxysmal Nocturnal Dyspnea, Pedal Edema, Radiating Pain, Rapid Heart Rate, Slow Heart Rate, Syncope, Other - Respiratory Respiratory: absent: As Per HPI, Cough, Dyspnea, Hemoptysis, Dyspnea on Exertion , Wheezing, Snoring, Stridor, Pain on Inspiration, Chest Congestion, Excessive Mucous Production, Change in Mucous Color, Pain with Coughing, Other - Gastrointestinal Gastrointestinal: absent: As Per HPI, Abdominal Pain, Belching, Bloating, Change in Bowel Habits, Change in Stool Character, Coffee Ground Emesis, Constipation, Cramping, Diarrhea, Dyspepsia, Dysphagia, Early Satiety, Excessive Flatus, Fecal Incontinence, Heartburn, Hematemesis, Hematochezia, Loose Stools, Melena, Nausea, Odynophagia, Temesmus, Vomiting, Other - Genitourinary Genitourinary: As Per HPI - Musculoskeletal Musculoskeletal: As Per HPI - Integumentary Integumentary: As Per HPI - Neurological Neurological: As Per HPI - Psychiatric Psychiatric: absent: As Per HPI, Abnormal Sleep Pattern, Anhedonia, Anxiety, Auditory Hallucinations, Behavioral Changes, Change in Appetite, Change in Libido, Confusion, Depression, Difficulty Concentrating, Hallucinations, Homicidal Ideation, Hopelessness, Irritability, Memory Loss, Mood Swings, Panic Attacks, Paranoia, Suicidal Ideation, Visual Hallucinations, Tactile Hallucinations, Other - Endocrine Endocrine: absent: As Per HPI, Change in Body Appearance, Change in Libido, Cold Intolorance, Deepening of Voice, Excessive Sweating, Fatigue, Flushing, Heat Intolorance, Increase in Ring/Shoe/Hat Size, Palpitations, Polydipsia, Polyphagia, Polyuria, Other - Hematologic/Lymphatic Hematologic: absent: As Per HPI, Easy Bleeding, Easy Bruising, Lymphadenopathy, Other Past Patient History - Past Social History Smoking Status: Current Some Days Smoker - CARDIAC Hx Hypercholesterolemia: No (denies) - NEUROLOGICAL Hx Neurological Disorder: Yes (paraplegic) - HEMATOLOGICAL/ONCOLOGICAL Hx AIDS: No Hx Human Immunodeficiency Virus (HIV): No - MUSCULOSKELETAL/RHEUMATOLOGICAL Hx Osteoporosis: No (denies) - PSYCHIATRIC Hx Substance Use: No - SURGICAL HISTORY Hx Surgeries: Yes Hx Musculoskeletal Surgery: Yes Other/Comment: C-6 surgery - ANESTHESIA Hx Anesthesia: Yes Hx Anesthesia Reactions: No Hx Malignant Hyperthermia: No Has any member of the family had a problem w/ anesthesia?: Yes Meds Allergies/Adverse Reactions: Allergies Allergy/AdvReac Type Severity Reaction Status Date / Time No Known Allergies Allergy Verified 03/19/16 11:20 - Medications Medications: Current Medications Acetaminophen/Codeine Phosphate (Tylenol/Codeine 300 Mg/30 Mg) 1 tab PO Q6 PRN PRN Reason: Pain, moderate (4-7) Alendronate Sodium (Fosamax) 70 mg PO QWK [facility] Cyanocobalamin (Vitamin B12 1000 Mcg Tab) 1,000 mcg PO DAILY [facility] Last Admin: 09/20/16 08:45 Dose: 1,000 mcg Ergocalciferol (Drisdol 50,000 Intl Units Cap) 1 cap PO QWK [facility] Meropenem 1 gm/ Sodium (Chloride) 100 mls @ 100 mls/hr IVPB Q8 [facility] Last Admin: 09/20/16 08:47 Dose: 100 mls/hr Mupirocin (Bactroban Cream) 1 applic TOP BID [facility] Last Admin: 09/20/16 08:46 Dose: 1 applic Physical Exam - Constitutional Appears: Non-toxic, Chronically Ill - Head Exam Head Exam: NORMOCEPHALIC - Eye Exam Eye Exam: PERRL. absent: Scleral icterus - ENT Exam ENT Exam: Mucous Membranes Dry, Normal External Ear Exam - Neck Exam Neck exam: Negative for: Lymphadenopathy, Thyromegaly - Respiratory Exam Respiratory Exam: Decreased Breath Sounds, Clear to Auscultation Bilateral - Cardiovascular Exam Cardiovascular Exam: REGULAR RHYTHM, +S1, +S2 - GI/Abdominal Exam GI & Abdominal Exam: Diminished Bowel Sounds, Soft. absent: Tenderness - Rectal Exam Rectal Exam: Deferred - Exam Exam: NORMAL INSPECTION - Extremities Exam Extremities exam: Negative for: calf tenderness, pedal edema - Back Exam Back exam: absent: CVA tenderness (L), CVA tenderness (R), paraspinal tenderness - Neurological Exam Neurological exam: Abnormal Gait, Alert, CN II-XII Intact, Motor Sensory Deficit , Oriented x3 - Psychiatric Exam Psychiatric exam: Normal Mood - Skin Skin Exam: Dry Results - Vital Signs Recent Vital Signs: Last Vital Signs Temp 98.1 F 09/20/16 09:00 Pulse 99 H 09/20/16 11:22 Resp 20 09/20/16 09:00 BP 126/80 09/20/16 09:00 Pulse Ox 100 09/20/16 09:00 Assessment & Plan (1) ESBL (extended spectrum beta-lactamase) producing bacteria infection Status: Acute (2) Intracranial hemorrhage Status: Acute Priority: High (3) Decubitus ulcer of sacral region, stage 3 Status: Chronic - Assessment and Plan (Free Text) Assessment: cont iv rx x 7 days
[2016-09-20] MEDS: Acetaminophen-Codeine 300/30 mg Tab PO PRN (19:25)
[2016-09-21] MEDS: Meropenem 1 GM in Sodium Chloride 0.9% 100 ML IVPB SCH ×3 (00:48→17:12)
[2016-09-21] MEDS: Mupirocin 2% Cream TOP SCH ×2 (09:05→17:13)
[2016-09-21] MEDS: Acetaminophen-Codeine 300/30 mg Tab PO PRN (15:07)
[2016-09-22] MEDS: Meropenem 1 GM in Sodium Chloride 0.9% 100 ML IVPB SCH ×3 (01:36→16:43)
[2016-09-22] MEDS: Mupirocin 2% Cream TOP SCH ×2 (08:35→17:35)
[2016-09-22] MEDS: Acetaminophen-Codeine 300/30 mg Tab PO PRN (16:01)
[2016-09-23] MEDS: Meropenem 1 GM in Sodium Chloride 0.9% 100 ML IVPB SCH ×3 (00:27→16:51)
[2016-09-23] MEDS: Mupirocin 2% Cream TOP SCH ×2 (09:34→16:54)
[2016-09-23] MEDS: Acetaminophen-Codeine 300/30 mg Tab PO PRN (10:45)
[2016-09-24] MEDS: Meropenem 1 GM in Sodium Chloride 0.9% 100 ML IVPB SCH ×3 (00:18→17:26)
[2016-09-24] MEDS: Mupirocin 2% Cream TOP SCH ×2 (08:33→17:27)
[2016-09-24] MEDS: Acetaminophen-Codeine 300/30 mg Tab PO PRN (12:25)
[2016-09-25] MEDS: Meropenem 1 GM in Sodium Chloride 0.9% 100 ML IVPB SCH ×3 (03:43→22:18)
[2016-09-25] MEDS: Mupirocin 2% Cream TOP SCH ×2 (08:34→16:53)
--- NOTE | 2016-09-25 10:27 | CP.PCM.PN ---
Subjective - Date & Time of Evaluation Date of Evaluation: 09/21/16 Time of Evaluation: 09:45 - Subjective Subjective: Patient remains stable Has slight headaches Dong well with PT Has no fever. Objective - Vital Signs/Intake and Output Vital Signs (last 24 hours): Temp Pulse Resp BP Pulse Ox 97.8 F 60 20 119/69 99 09/25/16 08:04 09/25/16 08:04 09/25/16 08:04 09/25/16 08:04 09/25/16 08:04 - Medications Medications: Current Medications Acetaminophen/Codeine Phosphate (Tylenol/Codeine 300 Mg/30 Mg) 1 tab PO Q6 PRN PRN Reason: Pain, moderate (4-7) Last Admin: 09/24/16 12:25 Dose: 1 tab Alendronate Sodium (Fosamax) 70 mg PO QWK [facility] Last Admin: 09/23/16 09:26 Dose: 70 mg Cyanocobalamin (Vitamin B12 1000 Mcg Tab) 1,000 mcg PO DAILY [facility] Last Admin: 09/25/16 08:34 Dose: 1,000 mcg Ergocalciferol (Drisdol 50,000 Intl Units Cap) 1 cap PO QWK [facility] Last Admin: 09/23/16 09:25 Dose: 1 cap Meropenem 1 gm/ Sodium (Chloride) 100 mls @ 100 mls/hr IVPB Q8@0400,1200,2000 [facility] Mupirocin (Bactroban Cream) 1 applic TOP BID [facility] Last Admin: 09/25/16 08:34 Dose: 1 applic - Head Exam Head Exam: NORMAL INSPECTION - Eye Exam Eye Exam: Normal appearance - ENT Exam ENT Exam: Mucous Membranes Moist - Respiratory Exam Respiratory Exam: Clear to Ausculation Bilateral - Cardiovascular Exam Cardiovascular Exam: REGULAR RHYTHM - GI/Abdominal Exam GI & Abdominal Exam: Normal Bowel Sounds - Neurological Exam Neurological Exam: Awake, CN II-XII Intact, Oriented x3 Assessment and Plan - Assessment and Plan (Free Text) Plan: Cont meds Cont tx Cont PT.
--- NOTE | 2016-09-25 10:29 | CP.PCM.PN ---
Subjective - Date & Time of Evaluation Date of Evaluation: 09/22/16 Time of Evaluation: 10:00 - Subjective Subjective: Patient continues to do well [place] no chest pain or SOB has slight headaches. Objective - Vital Signs/Intake and Output Vital Signs (last 24 hours): Temp Pulse Resp BP Pulse Ox 97.8 F 60 20 119/69 99 09/25/16 08:04 09/25/16 08:04 09/25/16 08:04 09/25/16 08:04 09/25/16 08:04 - Medications Medications: Current Medications Acetaminophen/Codeine Phosphate (Tylenol/Codeine 300 Mg/30 Mg) 1 tab PO Q6 PRN PRN Reason: Pain, moderate (4-7) Last Admin: 09/24/16 12:25 Dose: 1 tab Alendronate Sodium (Fosamax) 70 mg PO QWK [facility] Last Admin: 09/23/16 09:26 Dose: 70 mg Cyanocobalamin (Vitamin B12 1000 Mcg Tab) 1,000 mcg PO DAILY [facility] Last Admin: 09/25/16 08:34 Dose: 1,000 mcg Ergocalciferol (Drisdol 50,000 Intl Units Cap) 1 cap PO QWK [facility] Last Admin: 09/23/16 09:25 Dose: 1 cap Meropenem 1 gm/ Sodium (Chloride) 100 mls @ 100 mls/hr IVPB Q8@0400,1200,2000 [facility] Mupirocin (Bactroban Cream) 1 applic TOP BID [facility] Last Admin: 09/25/16 08:34 Dose: 1 applic - Head Exam Head Exam: NORMAL INSPECTION - Eye Exam Eye Exam: Normal appearance - ENT Exam ENT Exam: Mucous Membranes Moist - Respiratory Exam Respiratory Exam: Clear to Ausculation Bilateral - Cardiovascular Exam Cardiovascular Exam: REGULAR RHYTHM - Neurological Exam Neurological Exam: CN II-XII Intact, Oriented x3 Assessment and Plan (1) Intraparenchymal hemorrhage of brain Status: Acute (2) Decubitus ulcer of sacral region, stage 3 Status: Chronic (3) Paraplegia following spinal cord injury Status: Chronic - Assessment and Plan (Free Text) Plan: Con tmeds cont tx cont PT tylenol for headaches.
--- NOTE | 2016-09-25 10:31 | CP.PCM.PN ---
Subjective - Date & Time of Evaluation Date of Evaluation: 09/23/16 Time of Evaluation: 10:00 - Subjective Subjective: Patient remains stable Has no chest pain or SOB Has no fever On Iv antibiotics to complete a 14 days course. Objective - Vital Signs/Intake and Output Vital Signs (last 24 hours): Temp Pulse Resp BP Pulse Ox 97.8 F 60 20 119/69 99 09/25/16 08:04 09/25/16 08:04 09/25/16 08:04 09/25/16 08:04 09/25/16 08:04 - Medications Medications: Current Medications Acetaminophen/Codeine Phosphate (Tylenol/Codeine 300 Mg/30 Mg) 1 tab PO Q6 PRN PRN Reason: Pain, moderate (4-7) Last Admin: 09/24/16 12:25 Dose: 1 tab Alendronate Sodium (Fosamax) 70 mg PO QWK [facility] Last Admin: 09/23/16 09:26 Dose: 70 mg Cyanocobalamin (Vitamin B12 1000 Mcg Tab) 1,000 mcg PO DAILY [facility] Last Admin: 09/25/16 08:34 Dose: 1,000 mcg Ergocalciferol (Drisdol 50,000 Intl Units Cap) 1 cap PO QWK [facility] Last Admin: 09/23/16 09:25 Dose: 1 cap Meropenem 1 gm/ Sodium (Chloride) 100 mls @ 100 mls/hr IVPB Q8@0400,1200,2000 [facility] Mupirocin (Bactroban Cream) 1 applic TOP BID [facility] Last Admin: 09/25/16 08:34 Dose: 1 applic - Head Exam Head Exam: NORMAL INSPECTION - Eye Exam Eye Exam: Normal appearance - ENT Exam ENT Exam: Mucous Membranes Moist - Respiratory Exam Respiratory Exam: Clear to Ausculation Bilateral - Cardiovascular Exam Cardiovascular Exam: REGULAR RHYTHM - GI/Abdominal Exam GI & Abdominal Exam: Normal Bowel Sounds - Neurological Exam Neurological Exam: Awake, Oriented x3 Assessment and Plan (1) Intraparenchymal hemorrhage of brain Status: Acute (2) Decubitus ulcer of sacral region, stage 3 Status: Chronic (3) Paraplegia following spinal cord injury Status: Chronic - Assessment and Plan (Free Text) Plan: Cont meds cont tx Cont PT
--- NOTE | 2016-09-25 10:33 | CP.PCM.PN ---
Subjective - Date & Time of Evaluation Date of Evaluation: 09/25/16 Time of Evaluation: 10:31 - Subjective Subjective: Patient remains stable Doing well with PT Has no headaches Some problems with fry Objective - Vital Signs/Intake and Output Vital Signs (last 24 hours): Temp Pulse Resp BP Pulse Ox 97.8 F 60 20 119/69 99 09/25/16 08:04 09/25/16 08:04 09/25/16 08:04 09/25/16 08:04 09/25/16 08:04 - Medications Medications: Current Medications Acetaminophen/Codeine Phosphate (Tylenol/Codeine 300 Mg/30 Mg) 1 tab PO Q6 PRN PRN Reason: Pain, moderate (4-7) Last Admin: 09/24/16 12:25 Dose: 1 tab Alendronate Sodium (Fosamax) 70 mg PO QWK REPLACED BY [facility] Last Admin: 09/23/16 09:26 Dose: 70 mg Cyanocobalamin (Vitamin B12 1000 Mcg Tab) 1,000 mcg PO DAILY REPLACED BY [facility] Last Admin: 09/25/16 08:34 Dose: 1,000 mcg Ergocalciferol (Drisdol 50,000 Intl Units Cap) 1 cap PO QWK REPLACED BY [facility] Last Admin: 09/23/16 09:25 Dose: 1 cap Meropenem 1 gm/ Sodium (Chloride) 100 mls @ 100 mls/hr IVPB Q8@0400,1200,2000 REPLACED BY [facility] Mupirocin (Bactroban Cream) 1 applic TOP BID REPLACED BY [facility] Last Admin: 09/25/16 08:34 Dose: 1 applic - Head Exam Head Exam: NORMAL INSPECTION - Eye Exam Eye Exam: Normal appearance - ENT Exam ENT Exam: Mucous Membranes Moist - Respiratory Exam Respiratory Exam: NORMAL BREATHING PATTERN - Cardiovascular Exam Cardiovascular Exam: REGULAR RHYTHM - GI/Abdominal Exam GI & Abdominal Exam: Normal Bowel Sounds - Neurological Exam Neurological Exam: Awake, Oriented x3 Assessment and Plan (1) Intraparenchymal hemorrhage of brain Status: Acute (2) Decubitus ulcer of sacral region, stage 3 Status: Chronic (3) Paraplegia following spinal cord injury Status: Chronic - Assessment and Plan (Free Text) Plan: Cont medsCont PT Cont iv antibiotics Scheduled for discharge on sunday
[2016-09-26] MEDS: Meropenem 1 GM in Sodium Chloride 0.9% 100 ML IVPB SCH ×2 (04:43→12:00)
[2016-09-26] MEDS: Mupirocin 2% Cream TOP SCH (08:17)
[2016-09-26 08:40] VITALS: BP 106/63; PULSE 74; TEMP 97.8; O2SAT 100
--- NOTE | 2016-09-26 12:17 | CP.PCM.PN ---
Subjective - Date & Time of Evaluation Date of Evaluation: 09/26/16 Time of Evaluation: 08:00 - Subjective Subjective: improving for d/c on PO rx follow up with dr zapata Objective - Vital Signs/Intake and Output Vital Signs (last 24 hours): Temp Pulse Resp BP Pulse Ox 97.8 F 74 20 106/63 100 09/26/16 08:40 09/26/16 08:40 09/26/16 08:40 09/26/16 08:40 09/26/16 08:40 - Medications Medications: Current Medications Acetaminophen/Codeine Phosphate (Tylenol/Codeine 300 Mg/30 Mg) 1 tab PO Q6 PRN PRN Reason: Pain, moderate (4-7) Last Admin: 09/24/16 12:25 Dose: 1 tab Alendronate Sodium (Fosamax) 70 mg PO QWK [facility] Last Admin: 09/23/16 09:26 Dose: 70 mg Cyanocobalamin (Vitamin B12 1000 Mcg Tab) 1,000 mcg PO DAILY [facility] Last Admin: 09/26/16 08:15 Dose: 1,000 mcg Ergocalciferol (Drisdol 50,000 Intl Units Cap) 1 cap PO QWK [facility] Last Admin: 09/23/16 09:25 Dose: 1 cap Mupirocin (Bactroban Cream) 1 applic TOP BID [facility] Last Admin: 09/26/16 08:17 Dose: 1 applic - Constitutional Appears: Non-toxic, Cachectic, Chronically Ill - Head Exam Head Exam: NORMOCEPHALIC - Eye Exam Eye Exam: PERRL. absent: Scleral icterus - ENT Exam ENT Exam: Mucous Membranes Dry - Neck Exam Neck Exam: absent: Lymphadenopathy - Respiratory Exam Respiratory Exam: Decreased Breath Sounds, Clear to Ausculation Bilateral - Cardiovascular Exam Cardiovascular Exam: REGULAR RHYTHM - GI/Abdominal Exam GI & Abdominal Exam: Distended, Soft - Rectal Exam Rectal Exam: Deferred - Exam Exam: NORMAL INSPECTION - Extremities Exam Extremities Exam: absent: Pedal Edema - Back Exam Back Exam: absent: CVA tenderness (L), CVA tenderness (R) Assessment and Plan (1) ESBL (extended spectrum beta-lactamase) producing bacteria infection Status: Acute (2) Intracranial hemorrhage Status: Acute (3) Decubitus ulcer of sacral region, stage 3 Status: Chronic
== END 2016-09-26 14:20 | disposition home health service (06) | DRG 689 ==
LOC: H.TCU 17:40
PROVIDERS: ADMIT Family Medicine; ATTEND Family Medicine
PROC: 3E03329 Introduction of Other Anti-infective into Peripheral Vein, Percutaneous Approach (ICD-10-PCS; principal; 2016-09-19)
PROC: F07L6ZZ Therapeutic Exercise Treatment of Musculoskeletal System - Lower Back / Lower Extremity (ICD-10-PCS; 2016-09-19)
PROC: F08Z4FZ Home Management Treatment using Assistive, Adaptive, Supportive or Protective Equipment (ICD-10-PCS; 2016-09-19)
DX: N39.0 Urinary tract infection, site not specified (principal); I61.9 Nontraumatic intracerebral hemorrhage, unspecified; L89.153 Pressure ulcer of sacral region, stage 3; G82.20 Paraplegia, unspecified; Z16.12 Extended spectrum beta lactamase (ESBL) resistance; Z87.828 Personal history of other (healed) physical injury and trauma; Z87.891 Personal history of nicotine dependence

== ENCOUNTER 2018-06-08 17:35 | Emergency (ER) | payer MEDICARE ==
[2018-06-08 17:35] VITALS: BMI 31.4
[2018-06-08 17:45] VITALS: O2SAT 98
--- NOTE | 2018-06-08 18:42 | ED PDOC ---
HPI: Male Pain Time Seen by Provider: 06/08/18 17:46 Chief Complaint (Nursing): Male Genitourinary Chief Complaint (Provider): urinary retention and suprapubic pain History Per: Patient History/Exam Limitations: no limitations Onset/Duration Of Symptoms: Hrs Current Symptoms Are (Timing): Still Present Additional Complaint(s): Antonia Sousa is a 38 year old male, with a past medical history of paraplegia, who presents to the emergency department complaining of urinary retention associated with suprapubic pain. Patient has a fry catheter in place but states it stopped working a couple of hours ago. Patient reports last time he had the catheter changed was x1 month ago and he gets it changed at home. Patient reports similar symptoms in the past when his catheter stops working. Patient has chronic back wounds but denies any fever, chills, cough, congestion, chest pain, shortness of breath, headache or other medical complaints. PMD: None provided. Past Medical History Reviewed: Historical Data, Nursing Documentation, Vital Signs Vital Signs: Last Vital Signs Temp 94.6 F L 06/08/18 17:42 Pulse 59 L 06/08/18 17:42 Resp 20 06/08/18 17:42 BP 172/98 H 06/08/18 17:42 Pulse Ox 98 06/08/18 17:42 - Medical History PMH: Denies: HIV, Hypercholesterolemia (denies), Hyperlipidemia (denies), Osteoporosis (denies), Chronic Kidney Disease Other PMH: paraplegia - Surgical History Other surgeries: C-6 surgery - Family History Family History: States: Unknown Family Hx - Social History Current smoker - smoking cessation education provided: Yes (Current some days smoker) Alcohol: None Drugs: Denies - Home Medications Home Medications: Ambulatory Orders Medication Instructions Recorded Alendronate [Fosamax] 70 mg PO QWK 09/14/16 Cyanocobalamin [Vitamin B12 1000 1,000 mcg PO DAILY 09/14/16 mcg Tab] Ergocalciferol (Vitamin D2) 50,000 unit PO QWK 09/14/16 [Vitamin D2] Acetaminophen/Codeine 1 tab PO Q6 PRN tab 09/19/16 [Tylenol/Codeine 300 MG/30 MG] Mupirocin 2% Cream [Bactroban 1 applic TOP BID 09/19/16 Cream] Nitrofurantoin Macrocrystals 100 mg PO Q12 09/26/16 [Macrobid] Nitrofurantoin Macrocrystals 100 mg PO BID #10 cap 06/08/18 [Macrobid] - Allergies Allergies/Adverse Reactions: Allergies Allergy/AdvReac Type Severity Reaction Status Date / Time No Known Allergies Allergy Verified 03/19/16 11:20 Review of Systems ROS Statement: Except As Marked, All Systems Reviewed And Found Negative Constitutional: Negative for: Fever, Chills ENT: Negative for: Nose Congestion Cardiovascular: Negative for: Chest Pain Respiratory: Negative for: Cough, Shortness of Breath Genitourinary Male: Positive for: Incontinence Neurological: Negative for: Headache Physical Exam - Reviewed Nursing Documentation Reviewed: Yes Vital Signs Reviewed: Yes - Physical Exam Appears: Positive for: No Acute Distress Head Exam: Positive for: ATRAUMATIC, NORMAL INSPECTION, NORMOCEPHALIC Skin: Positive for: Normal Color, Warm, Dry Eye Exam: Positive for: Normal appearance, EOMI, PERRL Neck: Positive for: Normal, Painless ROM Cardiovascular/Chest: Positive for: Regular Rate, Rhythm. Negative for: Murmur Respiratory: Positive for: Normal Breath Sounds. Negative for: Respiratory Distress Gastrointestinal/Abdominal: Positive for: Normal Exam, Soft, Other (Urine catheter). Negative for: Tenderness, Guarding, Rebound Back: Positive for: Other (Stage 4 ulcer sacral and stage 3 also on the right hip) Extremity: Positive for: Normal ROM (full ROM of upper extremities. Unable to move lower extremities secondary to paraplegia) Neurologic/Psych: Positive for: Alert, Oriented - ECG O2 Sat by Pulse Oximetry: 98 (RA) Pulse Ox Interpretation: Normal - Progress ED Course And Treament: 2005: Stable. AAOx3. Pain free. Will tx for uti. Pt. refusing to stay for blood work to return. Last urine cx sensitive to macrobid. Will rx accordingly. Medical Decision Making Medical Decision Making: Time: 17:46 Initial Impression: Urinary retention Initial Plan: --CMP --Urine --Urine dipstick --CBC w/ differential --Urine culture --Fry --Reevaluation Fry not drawing, it was removed. 18:25 -Fry went in and producing urine. Patient reports feeling much better Scribe Attestation: Documented by Hany Chaudhari, acting as a scribe for Pierre Goodman MD Provider Scribe Attestation: All medical record entries made by the Scribe were at my direction and personally dictated by me. I have reviewed the chart and agree that the record accurately reflects my personal performance of the history, physical exam, medical decision making, and the department course for this patient. I have also personally directed, reviewed, and agree with the discharge instructions and disposition. Disposition - Clinical Impression Clinical Impression: Urinary tract infection, Malfunction of Fry catheter - Patient ED Disposition Is Patient to be Admitted: No Counseled Patient/Family Regarding: Diagnosis, Need For Followup, Rx Given - Disposition Referrals: [facility] [Outside] - 06/10/18 Disposition: Routine/Home Disposition Time: 20:09 Condition: STABLE Additional Instructions: Return if any pain, weakness, or not feeling well. Prescriptions: Nitrofurantoin Macrocrystals [Macrobid] 100 mg PO BID #10 cap Instructions: Urinary Tract Infection, Adult (DC), Fry Catheter, Male Forms: [employer] ([place]) Print Language: RUSSIAN
[2018-06-08 20:05] LABS: SQUAMOUS EPITHIAL 2 /hpf (0-5); URINE BACTERIA RARE (<OCC); URINE BILIRUBIN NEGATIVE (NEGATIVE); URINE BLOOD SMALL (NEGATIVE); URINE CALCIUM OXALATE CRYSTALS RARE /hpf (<OCC); URINE CLARITY CLOUDY (Clear); URINE COLOR YELLOW (YELLOW); URINE GLUCOSE (UA) NEG (NEGATIVE); URINE LEUKOCYTE ESTERASE LARGE Leu/uL (Negative); URINE PROTEIN NEGATIVE (NEGATIVE); URINE UROBILINOGEN 0.2-1.0 mg/dL (0.2-1.0)
[2018-06-08 20:12] LABS: ALB/GLOB RATIO 1.1 (1.0-2.1); ALBUMIN 4.3 g/dL (3.5-5.0); ALT/SGPT 37 U/L (21-72); AST/SGOT 55 U/L (17-59); BLOOD UREA NITROGEN 6 mg/dl (9-20); CALCIUM 9.4 mg/dL (8.4-10.2); GFR NON-AFRICAN AMERICAN > 60
[2018-06-08 22:44] VITALS: BP 152/78; PULSE 78; RESP 16; TEMP 98
== END 2018-06-08 20:45 | disposition home or self-care (01) ==
LOC: H.ER 17:35
DX: T83.098A Other mechanical complication of other urinary catheter, initial encounter (principal); N39.0 Urinary tract infection, site not specified; G82.20 Paraplegia, unspecified; F17.200 Nicotine dependence, unspecified, uncomplicated; L89.154 Pressure ulcer of sacral region, stage 4; L89.213 Pressure ulcer of right hip, stage 3

== ENCOUNTER 2018-09-17 17:51 | Emergency (ER) | payer MEDICARE ==
[2018-09-17 17:51] VITALS: BMI 31.4
[2018-09-17 18:29] VITALS: RESP 18; TEMP 97.7; O2SAT 98
--- NOTE | 2018-09-17 19:40 | ED PDOC ---
HPI: Male Pain Time Seen by Provider: 09/17/18 18:32 Chief Complaint (Nursing): Male Genitourinary Chief Complaint (Provider): pelvic pain, clogged De La Torre History Per: Patient History/Exam Limitations: no limitations Additional Complaint(s): 38 y/o paraplegic Male with hx of decubiti and chronic De La Torre for neurogenic bladder who presents with recurrent urinary retention from blocked De La Torre as well as nausea. He had one episode of vomiting on arrival to ED and feels nauseous currently. He has had severe pain for the past 2 - 3 hours because of the De La Trore and states that this has happened to him several times in the past. Denies abdominal pain, N/V, fevers, chills prior to a couple of hours ago. Patient last finished antibiotic for UTI 2 weeks ago. Past Medical History Reviewed: Historical Data, Nursing Documentation, Vital Signs Vital Signs: Last Vital Signs Temp 97.7 F 09/17/18 18:21 Pulse 64 09/17/18 18:21 Resp 18 09/17/18 18:21 BP 166/94 H 09/17/18 18:21 Pulse Ox 98 09/17/18 18:21 Primary Care Provider: Sarahy Stahl - Medical History PMH: Denies: HIV, Hypercholesterolemia (denies), Hyperlipidemia (denies), Osteoporosis (denies), Chronic Kidney Disease Other PMH: paraplegia - Family History Family History: States: Unknown Family Hx - Home Medications Home Medications: Ambulatory Orders Medication Instructions Recorded Alendronate [Fosamax] 70 mg PO QWK 09/14/16 Cyanocobalamin [Vitamin B12 1000 1,000 mcg PO DAILY 09/14/16 mcg Tab] Ergocalciferol (Vitamin D2) 50,000 unit PO QWK 09/14/16 [Vitamin D2] Acetaminophen/Codeine 1 tab PO Q6 PRN tab 09/19/16 [Tylenol/Codeine 300 MG/30 MG] Mupirocin 2% Cream [Bactroban 1 applic TOP BID 09/19/16 Cream] Nitrofurantoin Macrocrystals 100 mg PO Q12 09/26/16 [Macrobid] Nitrofurantoin Macrocrystals 100 mg PO BID #10 cap 06/08/18 [Macrobid] Ciprofloxacin HCl [Cipro] 250 mg PO BID #14 tablet 09/17/18 - Allergies Allergies/Adverse Reactions: Allergies Allergy/AdvReac Type Severity Reaction Status Date / Time No Known Allergies Allergy Verified 09/17/18 18:18 Review of Systems Constitutional: Negative for: Fever, Chills Gastrointestinal: Positive for: Nausea, Vomiting Genitourinary Male: Negative for: Hematuria Physical Exam - Reviewed Nursing Documentation Reviewed: Yes Vital Signs Reviewed: Yes - Physical Exam Appears: Positive for: Uncomfortable Skin: Negative for: Normal Color (flushed) Cardiovascular/Chest: Positive for: Tachycardia. Negative for: Murmur Respiratory: Positive for: Normal Breath Sounds Gastrointestinal/Abdominal: Positive for: Tenderness (on palpation of suprapubic area), Distended (firm), Other (maculopapular erythematous rash below pannus and in B/L groins as well as suprapubic area. No purulent drainage. ) Neurological/Psych: Positive for: Awake, Alert, Oriented - ECG O2 Sat by Pulse Oximetry: 98 Medical Decision Making Medical Decision Making: Patient in severe pain upon presentation so De La Torre catheter removed with immediate improvement in pain and drainage of clear urine with softening of abdomen. Urine dip, urine culture CBC, CMP De La Torre catheter re-insertion 20:00: patient endorsed to DONNA Brown pending labs and U/A. Disposition - Clinical Impression Clinical Impression: Obstructed De La Torre catheter, Bladder retention - Patient ED Disposition Is Patient to be Admitted: Transfer of Care (DONNA Brown) - Disposition Disposition: Transfer of Care Disposition Time: 20:00 Condition: FAIR Prescriptions: Ciprofloxacin HCl [Cipro] 250 mg PO BID #14 tablet Instructions: Urinary Tract Infection, Adult (DC), De La Torre Catheter, Male Print Language: TELUGU
--- NOTE | 2018-09-17 20:17 | ED PDOC ---
- Laboratory Results Urine dip results: Positive for: Leukocyte Esterase (moderate), Blood (trace). Negative for: Nitrate, Ketones, Glucose, Bilirubin - ECG O2 Sat by Pulse Oximetry: 98 - Progress ED Course And Treament: Patient refused bloodwork. States he vomited once in ED due to pain but currently feels well. Will f/u with pmd tomorrow. We will place leg bag/fry catheter in ED here. Disposition - Clinical Impression Clinical Impression: Obstructed Fry catheter, Bladder retention - POA Present On Arrival: None - Disposition Disposition: Routine/Home Disposition Time: 20:27 Condition: FAIR Prescriptions: Ciprofloxacin HCl [Cipro] 250 mg PO BID #14 tablet Instructions: Urinary Tract Infection, Adult (DC), Fry Catheter, Male Print Language: MOHAWK
[2018-09-17 23:43] VITALS: BP 135/82; PULSE 70
== END 2018-09-17 20:28 | disposition home or self-care (01) ==
LOC: H.ER 17:51
DX: R33.9 Retention of urine, unspecified (principal); Z46.6 Encounter for fitting and adjustment of urinary device

== ENCOUNTER 2018-10-01 05:27 | Emergency (ER) | payer MEDICARE ==
[2018-10-01 05:28] VITALS: BMI 31.4
[2018-10-01 05:57] VITALS: BP 106/64; PULSE 70; RESP 18; TEMP 97.7; O2SAT 99
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
== END 2018-10-01 06:48 | disposition home or self-care (01) ==
LOC: H.ER 05:27
DX: G82.20 Paraplegia, unspecified (principal); Z46.6 Encounter for fitting and adjustment of urinary device; Z87.891 Personal history of nicotine dependence